=== PATIENT | male | born 1950 | race Two or more races ===

== ENCOUNTER 2018-03-23 11:30 | Outpatient (AMBR) | payer MEDICARE, MEDICAID, SELFPAY ==
--- NOTE | 2018-02-25 15:13 | PTNOTE_ITS ---
PT OP Initial Eval Patient Information Visit Reasons: stroke Medical Diagnosis: Stroke Treatment Dx #1: Right Side Weakness Treatment Dx #2: Gait Difficulty Start of Care: 02/25/18 Date of Onset: 01/27/18 Initial Assessment Subjective Pt is a 67 y/o male recently had a stroke affecting his R side leading to decline difficulty with walking, chores, self care, feeding, and performing normal ADLs. Pt is now currently walking ~ 300 ft with FWW at home and started to self feed. Objective Right Shoulder AROM Flexion: 90 deg Abduction: 90 deg ER: 70 deg IR: 50 deg Right Shoulder MMTs: grossly 3-/5 Right PROM: all motions are WFL Right LE MMTs: grossly 3-/5; trace with R dorsiflexors Ambulation: increase hip flexion on the right with swing with minimal push off with preswing. No active DF with swing with poor ankle stability LE scale: 95% disabled Assessment Pt demonstrate right side weakness with abnormal gait secondary to L CVA. Pt has difficulty performing his feeding, dress, and functional tasks due to poor mobility and stability within his right UE and LE. Pt will benefit from physical therapy to increase strength, mobility, and work on ambulation Short Term and Skilled Nursing Goals 1) Increase LE scale to 40% and R LE MMTs to 4-/5 in 12 wks to be able to ambulate more than 1000 ft. 2) Increase R UE MMTs to 3+/5 in 12 wks to be able to feed him self 3) Increase indep with transfer and gait in 12 wks using FWW to be able to perform household ADLs 4) Indep with HEP Treatment Plan 1) Manual Therapy 2) Therapeutic Activities 3) Therapeutic Exercises 4) Gait Training Frequency and Duration 2 x wk for 12 wks Certification Dates: 02/25/18 to 05/28/18 Office Procedures PT Outpatient G-Codes Date of Service PT Date of Service: 02/25/18 G-Codes Walking & Moving Around Mobility Current Status G-Code: G8978: CM 80-100% Mobility Status G-Code: G8979: CJ 20-40% PT Procedures PT Date of Service: 02/25/18 OP PT Eval Mod Complex 30 minutes: Yes
--- NOTE | 2018-03-03 13:00 | ST.OIERPT ---
Office Procedures PT Outpatient G-Codes Date of Service PT Date of Service: 02/25/18 G-Codes Walking & Moving Around Mobility Current Status G-Code: G8978: CM 80-100% Mobility Status G-Code: G8979: CJ 20-40% PT Procedures PT Date of Service: 02/25/18 OP PT Eval Mod Complex 30 minutes: Yes PT Procedures PT Date of Service: 03/03/18 Gait Training 15 minutes: Yes Therapeutic Activity 15 minutes: Yes Therapeutic Exercise 15 minutes: Yes ST Evals/Treatments Date of Service ST Date of Service: 03/03/[address] Initial Swallow/Oral Function: Yes ST Speech Eval of Prod w/Language Eval: Yes ST Outpatient G-Codes Date of Service ST Date of Service: 03/03/18 Motor Speech G-Code/Modifiers Motor Speech Current Status G8999: CL 60-79% Impaired Motor Speech Projected Status G9186: CJ 20-39% Impaired ST OP Initial Eval Patient Information Visit Reasons: stroke, Apraxia and Dysphagia Medical Diagnosis: 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 arrived with DTR/ CG Objective: Speech, Language and Swallow Assessment Assessment: Mr. Davis is a primary serbian speaker who had a Stroke one month ago and treated at local hospital. He is at home with DTR now. He has been disabled for several years due to diabetes complications, vision is impaired moderately. 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 At this time Pt. has c/o of not being able to think of words and saying them intelligibly. He also has difficulty with eating solids foods. Dtr reports pt. is frustrated and often refuses meals. An oral peripheral examination was completed. He has very poor dentition. Many caries/ broken and missing bottom teeth and only one tooth on the top. Facial droop is observed. Lingual excursion is reduced as well as strength. Labial excursion is slow . Jaw grading is adequate. Pt. demonstrates difficulty producing 2+ syllabic words even with modeling. His communication in conversation lacks content words due to word recall deficits as well. Pt. has good auditory comprehension skills in primary language. He is able to recall 2+ step instructions. 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 Pt. was given trials of puree and regular textured snack 1/4 in piece. Pt. tolerates purees without difficulty. Pt. had scattered residue of cracker given and needed water to wash the residue and swallow. Pt. trials of thin liquids with cup and straw are WFL. Pt. is dependent for feeding most of the time. Short Term and Penitentiary Goals Penitentiary Goals: Pt. will improve communication exchanges with 90% acc for his safety and needs Short Term Goals: Pt. will improve oral motor skills to 90% acc Pt will improve sound production of varied multi syllabic words 90% acc Pt. will improve word recall of items from home and for ADL's 80% acc Pt. will improve tolerance for mechanical soft textures 95% acc Plan Treatment Plan: Speech, language and Dysphagia treatment for communication and swallowing deficits. Home ex. program for carry over of skills learned. Frequency and Duration: 2xwk X 8wk Certification Dates: March 03- 2017
--- NOTE | 2018-03-03 13:33 | PT.ODAYNRPT ---
PT Outpatient Daily Note Date of Service: March 03, 2018 OP Daily Note Visit Reasons: stroke Outpatient Physical Therapy Treatment Date: 03/03/18 Subjective: Pt has been practicing at home with walking. Objective: Please see flow chart for list of ther ex performed Assessment: cues to correct R LE with swing phase of gait. Pt's gait improved after step to (on foam) exercise with better push off. Plan: Continue with PT Length of Time (minutes) of Treatment: 45 Minutes Office Procedures PT Outpatient G-Codes Date of Service PT Date of Service: 02/25/18 G-Codes Walking & Moving Around Mobility Current Status G-Code: G8978: CM 80-100% Mobility Status G-Code: G8979: CJ 20-40% PT Procedures PT Date of Service: 02/25/18 OP PT Eval Mod Complex 30 minutes: Yes PT Procedures PT Date of Service: 03/03/18 Gait Training 15 minutes: Yes Therapeutic Activity 15 minutes: Yes Therapeutic Exercise 15 minutes: Yes
--- NOTE | 2018-03-09 14:44 | ST.ODAYNRPT ---
Office Procedures PT Outpatient G-Codes Date of Service PT Date of Service: 02/25/18 G-Codes Walking & Moving Around Mobility Current Status G-Code: G8978: CM 80-100% Mobility Status G-Code: G8979: CJ 20-40% PT Procedures PT Date of Service: 02/25/18 OP PT Eval Mod Complex 30 minutes: Yes PT Procedures PT Date of Service: 03/03/18 Gait Training 15 minutes: Yes Therapeutic Activity 15 minutes: Yes Therapeutic Exercise 15 minutes: Yes ST Evals/Treatments Date of Service ST Date of Service: 03/03/[address] Initial Swallow/Oral Function: Yes ST Speech Eval of Prod w/Language Eval: Yes ST Evals/Treatments Date of Service ST Date of Service: 03/08/[address] Speech Therapy Individual: Yes ST Outpatient G-Codes Date of Service ST Date of Service: 03/03/18 Motor Speech G-Code/Modifiers Motor Speech Current Status G8999: CL 60-79% Impaired Motor Speech Projected Status G9186: CJ 20-39% Impaired ST Outpatient Daily Note OP Daily Note Visit Reasons: stroke Outpatient Speech Therapy Treatment Date: 03/08/18 Subjective: Pt. arrived with dtr. in Objective: Pt. will demonstrate labial, lingual and jaw oral motor ex. for ROM and strength 90% acc ST Start of Care Date: 03/03/18 Short term goals/Tx given Pt. will improve oral motor skills to 90% acc Pt will improve sound production of varied multi syllabic words 90% acc Pt. will improve word recall of items from home and for ADL's 80% acc Pt. will improve tolerance for mechanical soft textures 95% acc Treatment of Swallowing Function Treatment of Speech/Language Pt. was instructed on placement of the articulator with tactile and visual cues. Pt. demonstrated over groping. Pt. was able to imitate from the model with 50% acc for jaw and lip and 25 % for lingual protrusion and elevation. DTR instructed on how to carry over and practice at home HEP sheet for oral motor ex targeted issued in primary language. Cont ST POC. Treatment Time Treatment Time (minutes): 45 minutes
--- NOTE | 2018-03-18 13:53 | ST.ODAYNRPT ---
Office Procedures PT Outpatient G-Codes Date of Service PT Date of Service: 02/25/18 G-Codes Walking & Moving Around Mobility Current Status G-Code: G8978: CM 80-100% Mobility Status G-Code: G8979: CJ 20-40% PT Procedures PT Date of Service: 02/25/18 OP PT Eval Mod Complex 30 minutes: Yes PT Procedures PT Date of Service: 03/03/18 Gait Training 15 minutes: Yes Therapeutic Activity 15 minutes: Yes Therapeutic Exercise 15 minutes: Yes ST Evals/Treatments Date of Service ST Date of Service: 03/03/[address] Initial Swallow/Oral Function: Yes ST Speech Eval of Prod w/Language Eval: Yes ST Evals/Treatments Date of Service ST Date of Service: 03/08/[address] Speech Therapy Individual: Yes ST Evals/Treatments Date of Service ST Date of Service: 03/18/[address] Speech Therapy Individual: Yes ST Outpatient G-Codes Date of Service ST Date of Service: 03/03/18 Motor Speech G-Code/Modifiers Motor Speech Current Status G8999: CL 60-79% Impaired Motor Speech Projected Status G9186: CJ 20-39% Impaired ST Outpatient Daily Note OP Daily Note Visit Reasons: stroke Outpatient Speech Therapy Treatment Date: 03/18/18 Subjective: Pt. arrived with dtr and HWK. Objective: Pt. will imitate oral motor ex for lips, jaw and tongue 50% acc Mod A 25 % acc for lips, and jaw, O% for tongue Pt. will express automatic names : numbers, BD, city/state, name of street address, childrens names and months of the year mod A 100% acc Max A 50% acc ST Start of Care Date: 03/03/18 Short term goals/Tx given Pt. will improve oral motor skills to 90% acc Pt will improve sound production of varied multi syllabic words 90% acc Pt. will improve word recall of items from home and for ADL's 80% acc Pt. will improve tolerance for mechanical soft textures 95% acc Treatment of Speech/Language Pt. was able to return demonstration given on target objectives and completed all tasks with good effort. cont ST POC for improving communication skills for expressing his wants and needs to the average listener. Other Recommend to DTr a hearing evaluation and vision test to aid the Rehab of communication Treatment Time Treatment Time (minutes): 30 minutes
--- NOTE | 2018-03-18 15:14 | PT.ODAYNRPT ---
PT Outpatient Daily Note Date of Service: March 18, 2018 OP Daily Note Visit Reasons: stroke Outpatient Physical Therapy Treatment Date: 03/18/18 Subjective: pt had no complaints upon visit. Objective: see flow sheet. Assessment: daughter came in with pt in . stand pivot transfer WC<>sci-fit. gait inside the PB using gait belt for safety followed by WC per daughter. during side steps pt has difficulty lifting and stepping with the RLE so he tends to drag it. when pt steps sideways starting off with the RLE 1st then he can lift his leg and step. daughter is very helpful and demonstrates the correct exercise. pt will ask daughter to lift his leg for the exercises but I told him he needs to try on his own. pt tends to fatigue towards the end of the reps with exercises. Plan: continue POC per PT. Length of Time (minutes) of Treatment: 30 Minutes Office Procedures PT Outpatient G-Codes Date of Service PT Date of Service: 02/25/18 G-Codes Walking & Moving Around Mobility Current Status G-Code: G8978: CM 80-100% Mobility Status G-Code: G8979: CJ 20-40% PT Procedures PT Date of Service: 02/25/18 OP PT Eval Mod Complex 30 minutes: Yes PT Procedures PT Date of Service: 03/03/18 Gait Training 15 minutes: Yes Therapeutic Activity 15 minutes: Yes Therapeutic Exercise 15 minutes: Yes PT Procedures PT Date of Service: 03/18/18 Gait Training 15 minutes: Yes Therapeutic Exercise 15 minutes: Yes ST Evals/Treatments Date of Service ST Date of Service: 03/03/[address] Initial Swallow/Oral Function: Yes ST Speech Eval of Prod w/Language Eval: Yes ST Evals/Treatments Date of Service ST Date of Service: 03/08/[address] Speech Therapy Individual: Yes ST Evals/Treatments Date of Service ST Date of Service: 03/18/[address] Speech Therapy Individual: Yes ST Outpatient G-Codes Date of Service ST Date of Service: 03/03/18 Motor Speech G-Code/Modifiers Motor Speech Current Status G8999: CL 60-79% Impaired Motor Speech Projected Status G9186: CJ 20-39% Impaired
--- NOTE | 2018-03-22 12:06 | PT.ODAYNRPT ---
PT Outpatient Daily Note Date of Service: March 22, 2018 OP Daily Note Visit Reasons: stroke Outpatient Physical Therapy Treatment Date: 03/22/18 Subjective: Pt's daugther mention that he continues to move slowly around the house with his FWW. Pt still has difficulty with transitioning from sitting to standing when he is in the w/c Objective: Please see flow chart for list of ther ex performed Assessment: gait training today with quad cane; Pt physically need help with correct cane placement. At first Pt's dynamic stability is poor but as we practice using the cane he was less fear of falling allowing his dynamic balance to improve while ambulating. Pt require cues to reach for right arm rest while sitting down. With practice improve and Pt started looking for the arm rest on the right side. Plan: Continue with PT Length of Time (minutes) of Treatment: 45 Minutes Office Procedures PT Outpatient G-Codes Date of Service PT Date of Service: 02/25/18 G-Codes Walking & Moving Around Mobility Current Status G-Code: G8978: CM 80-100% Mobility Status G-Code: G8979: CJ 20-40% PT Procedures PT Date of Service: 02/25/18 OP PT Eval Mod Complex 30 minutes: Yes PT Procedures PT Date of Service: 03/03/18 Gait Training 15 minutes: Yes Therapeutic Activity 15 minutes: Yes Therapeutic Exercise 15 minutes: Yes PT Procedures PT Date of Service: 03/18/18 Gait Training 15 minutes: Yes Therapeutic Exercise 15 minutes: Yes PT Procedures PT Date of Service: 03/22/18 Gait Training 30 minutes: Yes Therapeutic Activity 15 minutes: Yes ST Evals/Treatments Date of Service ST Date of Service: 03/03/[address] Initial Swallow/Oral Function: Yes ST Speech Eval of Prod w/Language Eval: Yes ST Evals/Treatments Date of Service ST Date of Service: 03/08/[address] Speech Therapy Individual: Yes ST Evals/Treatments Date of Service ST Date of Service: 03/18/[address] Speech Therapy Individual: Yes ST Outpatient G-Codes Date of Service ST Date of Service: 03/03/18 Motor Speech G-Code/Modifiers Motor Speech Current Status G8999: CL 60-79% Impaired Motor Speech Projected Status G9186: CJ 20-39% Impaired
--- NOTE | 2018-03-23 12:19 | ST.ODAYNRPT ---
Office Procedures PT Outpatient G-Codes Date of Service PT Date of Service: 02/25/18 G-Codes Walking & Moving Around Mobility Current Status G-Code: G8978: CM 80-100% Mobility Status G-Code: G8979: CJ 20-40% PT Procedures PT Date of Service: 02/25/18 OP PT Eval Mod Complex 30 minutes: Yes PT Procedures PT Date of Service: 03/03/18 Gait Training 15 minutes: Yes Therapeutic Activity 15 minutes: Yes Therapeutic Exercise 15 minutes: Yes PT Procedures PT Date of Service: 03/18/18 Gait Training 15 minutes: Yes Therapeutic Exercise 15 minutes: Yes PT Procedures PT Date of Service: 03/22/18 Gait Training 30 minutes: Yes Therapeutic Activity 15 minutes: Yes ST Evals/Treatments Date of Service ST Date of Service: 03/03/[address] Initial Swallow/Oral Function: Yes ST Speech Eval of Prod w/Language Eval: Yes ST Evals/Treatments Date of Service ST Date of Service: 03/23/[address] Speech Therapy Individual: Yes ST Evals/Treatments Date of Service ST Date of Service: 03/08/[address] Speech Therapy Individual: Yes ST Evals/Treatments Date of Service ST Date of Service: 03/18/[address] Speech Therapy Individual: Yes ST Outpatient G-Codes Date of Service ST Date of Service: 03/03/18 Motor Speech G-Code/Modifiers Motor Speech Current Status G8999: CL 60-79% Impaired Motor Speech Projected Status G9186: CJ 20-39% Impaired ST Outpatient Daily Note OP Daily Note Visit Reasons: stroke Outpatient Speech Therapy Treatment Date: 03/22/18 Subjective: Pt. arrived with his CG dtr. Objective: Pt. will imitate oral motor ex for lips, jaw and tongue 50% acc Mod A 50 % acc for lips, and jaw, 25% for tongue Pt. will express automatic names : numbers, BD, city/state, name of street address, childrens names and months of the year mod A 100% acc Mod A 50% acc Assessment: ST Start of Care Date: 03/03/18 Short term goals/Tx given Pt. will improve oral motor skills to 90% acc Pt will improve sound production of varied multi syllabic words 90% acc Pt. will improve word recall of items from home and for ADL's 80% acc Pt. will improve tolerance for mechanical soft textures 95% acc Treatment of Speech/Language Pt. is demonstrating improved oral motor control of lips, and tongue for ROM. Pt. still requires visual and tactile cues. Pt. is improving for automatic responses of target words relating to personal id info. Cont ST POC for improving communication exchanges with the average listener. Other Recommend to DTR a hearing evaluation and vision test to aid the Rehab of communication Treatment Time Treatment Time (minutes): 30 minutes
--- NOTE | 2018-05-06 11:03 | ST.DCSUMMARY ---
Speech Therapy DC Summary MD:: Robert Kim Diagnosis:: CVA with speech and language deficits SOC: 03/03/18 Discharge Date:: 05/06/18 Problems:: Oral Phase Dysphagia, Decreased Intelligibility and Decreased Expressive Language Interventions:: S.T. Evaluation, Oral-Motor Exercises and Other (speech and language retrng.) D/C Status: Other Comments: Pt. did not show for 1 planned and scheduled visits in March and cancelled another. No response to phone messages left by front office for appt. Three treatment visits only completed in February. POC not achieved Assessment: Patient is:: Requires encouragement Patient's progress toward establishing goals:: Fair (pt. did not complete POC.) Reason for Discharge:: Noncompliant/No progress Office Procedures PT Outpatient G-Codes Date of Service PT Date of Service: 02/25/18 G-Codes Walking & Moving Around Mobility Current Status G-Code: G8978: CM 80-100% Mobility Status G-Code: G8979: CJ 20-40% PT Procedures PT Date of Service: 02/25/18 OP PT Eval Mod Complex 30 minutes: Yes PT Procedures PT Date of Service: 03/03/18 Gait Training 15 minutes: Yes Therapeutic Activity 15 minutes: Yes Therapeutic Exercise 15 minutes: Yes PT Procedures PT Date of Service: 03/18/18 Gait Training 15 minutes: Yes Therapeutic Exercise 15 minutes: Yes PT Procedures PT Date of Service: 03/22/18 Gait Training 30 minutes: Yes Therapeutic Activity 15 minutes: Yes ST Evals/Treatments Date of Service ST Date of Service: 03/03/[address] Initial Swallow/Oral Function: Yes ST Speech Eval of Prod w/Language Eval: Yes ST Evals/Treatments Date of Service ST Date of Service: 03/23/[address] Speech Therapy Individual: Yes ST Evals/Treatments Date of Service ST Date of Service: 03/08/[address] Speech Therapy Individual: Yes ST Evals/Treatments Date of Service ST Date of Service: 03/18/[address] Speech Therapy Individual: Yes ST Outpatient G-Codes Date of Service ST Date of Service: 03/03/18 Motor Speech G-Code/Modifiers Motor Speech Current Status G8999: CL 60-79% Impaired Motor Speech Projected Status G9186: CJ 20-39% Impaired
== END 2018-03-26 23:59 ==
PROVIDERS: Visit Provider Speech-Language Pathologist
DX: I10 Essential (primary) hypertension (principal)
CPT/HCPCS: 92507; 92523; 92610; 97110; 97116; 97162; 97530; G8978; G8979; G8999; G9186

== ENCOUNTER 2018-04-11 13:30 | Outpatient (AMBR) | payer MEDICARE, MEDICAID, SELFPAY ==
--- NOTE | 2018-04-11 16:41 | PT.ODAYNRPT ---
PT Outpatient Daily Note Date of Service: April 11, 2018 OP Daily Note Visit Reasons: stroke Outpatient Physical Therapy Treatment Date: 04/11/18 Subjective: pt doing well as he arrived with daughter. Objective: see flow sheet. Assessment: during sit<>Stands pt tends to rely on UE strength to pull up but cued pt to use and push off with his legs in order to increase strength. pt understood but he is use to using more UE. daughter followed us with for safety during gait training. pt using quad cane and need max cuing for correct placement of the cane. while I'm holding pt on the R side using the gait belt he tends to push against me to help him bring his R foot forward. If i step away but still holding onto the gait belt pt gets anxious and can't bring his foot forward. encouraged pt to try and it took him a while but he did it. pt relies on me or someone being next to him for his RLE. needs more practice without someone being too close to him so he can get the courage of doing the steps on his own. Plan: continue POC per PT. Length of Time (minutes) of Treatment: 30 Minutes Office Procedures PT Procedures PT Date of Service: 04/11/18 Therapeutic Activity 30 minutes: Yes
== END 2018-04-26 23:59 | disposition home or self-care (01) ==
PROVIDERS: Visit Provider Internal Medicine
DX: I10 Essential (primary) hypertension (principal)
CPT/HCPCS: 97530

== ENCOUNTER 2025-05-16 04:24 | Inpatient (IN) | payer MEDICARE, MEDICAID, SELFPAY ==
[2025-05-16] VITALS (24 sets, daily range): BP systolic 67–128; BP diastolic 34–70; PULSE 72–146; RESP 11–92; TEMP 35.6–38.6; O2SAT 92–100; BMI 20.3
--- NOTE | 2025-05-16 04:38 | EDNOTE_ITS ---
Altered Mental Status RME/HPI General Chief Complaint: Altered Mental Status Stated Complaint: NOT ACTING HIMSELF; SHAKING Time Seen by Provider: 05/16/25 04:43 Arrival date/time: 05/16/25 04:24 RME / HPI RME / HPI narrative: See MDM for HPI documentation. Related Data Home Medications ?Medication ?Instructions ?Recorded ?Confirmed doxazosin 4 mg tablet 4 mg PO QDAY 01/27/18 losartan 50 mg tablet 50 mg PO QDAY 01/27/1805/16 metformin 1,000 mg tablet 500 mg PO QDAY 01/27/18 0706/20 levothyroxine 88 mcg tablet 88 mcg PO QDAY 04/04/24 Previous Rx's ?Medication ?Instructions ?Recorded clopidogrel 75 mg tablet (Plavix) 75 mg PO QDAY #0 tab s 01/29/18 simvastatin 20 mg tablet 40 mg (2 x 20 mg) PO HS #0 t abs 01/29/18 amoxicillin 500 mg-potassium 1 tab PO BID #12 tabs 09/19 clavulanate 125 mg tablet (Augmentin) sennosides 8.6 mg tablet (senna) 8.6 mg PO QDAY PRN co nstipation 04/07/24 #15 tabs Allergies Allergy/AdvReac Type Severity Reaction Status Date / Time No Known Allergies Allergy Verified 01/27/18 12:04 Review of Systems Review of Systems ROS Unobtainable: unobtainable due to mental status Past Medical History Past Medical History NEUROLOGIC: Negative Neurological Disorders CARDIAC: Positive Hypertension; Negative Cardiac Disorders or Congestive Heart Failure RESPIRATORY: Negative Chronic Obstructive Pulmonary Disease (COPD) or Asthma GENITOURINARY: Negative Renal Disease REPRODUCTIVE: Negative Testicular Cancer MUSCULOSKELETAL: Negative Musculoskeletal Disorders ENDOCRINE: Positive Diabetes Mellitus Type 2; Negative Diabetes Mellitus Type 1 HEMATOLOGIC: Negative Blood Disorders or Sickle Cell Disease OTHER HISTORY: Negative Autoimmune Disease or Testicular Cancer Family History FAMILY HISTORY: Negative Family Psychiatric Problems, Family Cancer, Family Surgery or Family Anesthesia Reaction Surgical History SURGICAL: Negative Vasectomy Social History SMOKING STATUS: Never smoker ED Exam Narrative Physical exam: See [facility] for physical exam documentation. Course Course Course Narrative: 0440: Stroke alert initiated. 0508: Sepsis alert initiated. Orders made at this time are congruent with ED Adult Sepsis Order List. Re-evaluation is to be completed. NS IVF was already started. Quality Measures none Orders Category Date Time Status Bedside Blood Glucose NOW Care 05/16/25 04:39 Completed Bedside COVID-19 Antigen Test NOW Care 05/16/25 04:40 Active Bedside Influenza A&B Antigen Test NOW Care 05/16/25 04:40 Completed Blood glucose [Bedside Blood Glucose] NOW Care 05/16/25 04:31 Active COVID-19 Screening Questionnaire NOW Care 05/16/25 05:49 Active Topper Packer NOW Care 05/16/25 04:39 Active Continuous Pulse Oximetry NOW Care 05/16/25 04:39 Completed Decision to Admit X1 Care 05/16/25 05:49 Completed EKG (ED ONLY) *Do not use* NOW Care 05/16/25 04:31 Completed EKG (ED ONLY) *Do not use* NOW Care 05/16/25 04:39 Completed EKG (ED ONLY) *Do not use* NOW Care 05/16/25 06:01 Completed Insert IV NOW Care 05/16/25 04:39 Active NPO NOW Care 05/16/25 04:39 Active Nurse Swallow Screen x1 Care 05/16/25 04:39 Active Straight [In and Out Catheter] X1 Care 05/16/25 04:40 Completed Consult to Neurology / Tele-Neurology Routine Cons 05/16/25 04:[address] stroke protocol Stat Exams 05/16/25 04:39 Completed EKG (ED Only) Stat Exams 05/16/25 04:31 Ordered EKG (ED Only) Stat Exams 05/16/25 04:39 Ordered EKG (ED Only) Stat Exams 05/16/25 06:01 Ordered XR chest 1V portable Stat Exams 05/16/25 04:39 Completed Arterial Blood Gas Stat Lab 05/16/25 05:58 Completed B-Type Natriuretic Peptide Stat Lab 05/16/25 04:40 Completed Bilirubin,Direct Stat Lab 05/16/25 04:40 Completed Blood Culture (Lab) Stat Lab 05/16/25 04:40 Results CBC Stat Lab 05/16/25 04:40 Completed CRP [C-Reactive Protein] Stat Lab 05/16/25 04:40 Completed Comprehensive Metabolic Panel Stat Lab 05/16/25 04:40 Completed ESR [Sed Rate (ESR)] Stat Lab 05/16/25 04:40 Completed Lactate (Lactic Acid) Stat Lab 05/16/25 04:40 Completed Magnesium Stat Lab 05/16/25 04:40 Completed Partial Thromboplastin Time Stat Lab 05/16/25 04:40 Completed Prothrombin Time with INR Stat Lab 05/16/25 04:40 Completed TSH [Thyroid Stimulating Hormone] Stat Lab 05/16/25 04:40 Completed Troponin I Stat Lab 05/16/25 04:40 Completed UA, C/S IF [Urinalysis, C/S if Indicated] Stat Lab 05/16/25 05:45 Completed Urine Culture Stat Lab 05/16/25 05:45 Received Acetaminophen Ivpb [Ofirmev Inj] Med 05/16/25 05:07 Discontinued 1,000 mg in 100 ml IV X1 Albuterol/Ipratr Rt Felisha [Duoneb Rt Eflisha] Med 05/16/25 05:48 Discontinued 3 ml INH X1 ONE Ketorolac Inj [Toradol Inj] Med 05/16/25 05:07 Discontinued 15 mg IVP X1 ONE MethylPREDNISolone.* [SoluMEDROL Inj] Med 05/16/25 05:48 Discontinued 125 mg IVP X1 ONE Ondansetron Inj [Zofran Inj] Med 05/16/25 04:41 Discontinued 4 mg IVP X1 ONE Sodium Chloride 0.9% 1000 ml [Ns] 1,000 ml Med 05/16/25 04:41 Discontinued IV 999 mls/hr Sodium Chloride 0.9% 1000 ml [Ns] 1,000 ml Med 05/16/25 05:07 Discontinued IV 999 mls/hr cefTRIAXone/D5w 1gm IV premix [Rocephin/D5w 1gm IV Med 05/16/25 05:22 Discontinued premix] 1 gm in 50 ml IV X1 Oxygen Delivery NOW RT 05/16/25 04:39 Completed Vital Signs Vital signs: Vital Signs Temperature 98.6 F 05/16/25 04:45 Pulse Rate 103 H 05/16/25 04:45 Respiratory Rate 17 05/16/25 04:45 Blood Pressure 67/47 L 05/16/25 04:45 Pulse Oximetry (%) 98 05/16/25 04:45 Oxygen Delivery Method Room Air 05/16/25 04:45 Altered Mental Status MDM Narrative MDM Narrative:: This section includes all my notes and documentations, including HPI, PE, and ED course. Best Nunez MD HPI: 74yo male with a history of CVA with residual right-sided hemiparesis here for confusion and slurred speech since 10pm, about 12 hours ago. Daughter also noted inability to swallow water (drooled out of the right side of his mouth). With vomiting. No obvious fever. Patient is on Plavix. No other complaints reported. ROS: Unobtainable from the patient due to current clinical condition. Physical Exam: General: Alert and oriented X 1. Appearance of malaise noted. Eyes: Conjunctivae and lids clear. PERRL. EOMI. ENT: No nasal congestion. Neck: Supple. No carotid bruit. No JVD. Heart: RRR. Lungs: No respiratory distress. Good air movement. No rhonchi, wheezing, rales. Abdomen: Soft and nontender. Normal bowel sounds. No distension. No rebound or guarding. Back: No CVA tenderness. Skin: Warm and dry. Neuro: Alert. I reviewed all diagnostic test results. My interpretation of the chest x-ray is infiltrates. My review of the CT head report is NAD. Blood tests remarkable for Lactic Acid 7.1, Creatinine 1.4, Glucose 329, Troponin 0.067, CRP 6.4, ESR 23. UA showed leukocyte esterase, 195 RBC, 5141 WBC, and 3+ bacteria. At this point, diagnoses include: Sepsis, AMS (altered mental status), Acute respiratory failure with hypoxia, Pneumonia, SWEETIE (acute kidney injury), UTI (urinary tract infection) Treatment here included IV fluid, Zofran, Toradol, Rocephin, Tylenol. I discussed the case with our teleneurologist. About the presentation and exam and diagnostics and treatments here. Probably no BREAKFAST HOST etiology. I discussed the case with our hospitalist. About the presentation and exam and diagnostics and treatments here. And need of further care in the hospital. Will accept the patient. Best Nunez MD Patient data External records reviewed:: [facility] previous records (Per chart review, patient was admitted here on 04/03/24 for dehydration.) Clinical information provided by:: family (daughter and grandson) Social determinants that could affect healthcare access:: none Patient has the following chronic illnesses:: CVA with residual right-sided hemiparesis, DM, HTN How is presenting disease/condition affected by chronic disease/condition?: uneffected by Evaluation data The following diagnostics were reviewed and interpreted by me:: lab results, radiology exam(s) and EKG tracing(s) (My interpretation of the EKG is: Sinus tachycardia (102 bpm) with nonspecific ST-T changes. ) Lab and/or radiology exams considered but not ordered:: none Interpretation Summary: I reviewed all diagnostic test results. My interpretation of the chest x-ray is infiltrates. My review of the CT head report is NAD. Blood tests remarkable for Lactic Acid 7.1, Creatinine 1.4, Glucose 329, Troponin 0.067, CRP 6.4, ESR 23. UA showed leukocyte esterase, 195 RBC, 5141 WBC, and 3+ bacteria. Medications / Prescriptions Medications or Prescriptions considered but not ordered:: none Medication administrations:: Medication Administration History Acetaminophen (Acetaminophen 325 Mg Tablet) 650 mg PO Q6H PRN PRN Reason: Fever >100.4 Stop: 06/15/25 06:07 Acetaminophen (Acetaminophen 325 Mg Tablet) 650 mg PO Q6H PRN PRN Reason: PAIN SCALE 1-3 (mild Stop: 06/15/25 06:07 Atorvastatin Calcium (Atorvastatin Calcium 20 Mg Tablet) 40 mg PO HS ALETA Stop: 06/15/25 20:59 Last Admin: 05/16/25 22:01 Dose: 40 mg Documented By: FRANCIS Clopidogrel Bisulfate (Clopidogrel Bisulfate 75 Mg Tablet) 75 mg PO QDAY [facility] Stop: 06/15/25 08:59 Last Admin: 05/16/25 11:04 Dose: Not Given Documented By: DAA Non-Admin Reason: NPO Dextrose (Dextrose 50%-Water Inj 50 Ml Syringe) 25 ml IV Q15MIN PRN PRN Reason: BG 50-70 responsive npo pt Stop: 06/15/25 06:12 Dextrose (Dextrose 50%-Water Inj 50 Ml Syringe) 50 ml IV Q15MIN PRN PRN Reason: BG <50 OR BG <70 & pt unresponsive Stop: 06/15/25 06:12 Glucagon (Glucagon Inj 1 Mg Vial) 1 mg IM Q15MIN PRN PRN Reason: BG <70, and no IV access Heparin Sodium (Porcine) (Heparin Sod Inj 5000 Unit/Ml Vial) 5,000 unit SC Q12HR ALETA Stop: 05/30/25 08:59 Last Admin: 05/16/25 22:01 Dose: 5,000 unit Documented By: FRANCIS Co-signed By: MECHELLE Admin: 05/16/25 09:46 Dose: 5,000 unit Documented By: JOSE Co-signed By: GIOVANY Sodium Chloride (Ns) 1,000 mls @ 75 mls/hr IV .[id number] ALETA Stop: 05/17/25 06:15 Last Infusion: 05/16/25 07:49 Dose: 0 mls/hr Documented By: Admin: 05/16/25 06:53 Dose: 75 mls/hr Documented By: EZE Ceftriaxone Sodium/Dextrose (Rocephin/D5w 1gm Iv Premix) 1 gm in 50 mls @ 100 mls/hr IV QDAY [facility] Stop: 05/24/25 08:59 Insulin Human Lispro (Insulin Lispro (Admelog) 1 Unit/0.01 Ml Unit) 0 unit SC AC [facility]; Protocol Stop: 06/15/25 07:29 Last Admin: 05/16/25 18:13 Dose: 2 unit Documented By: MORENITA Co-signed By: GIOVANY(2) Admin: 05/16/25 12:30 Dose: Not Given Documented By: GIOVANY Non-Admin Reason: NPO Admin: 05/16/25 07:46 Dose: 4 unit Documented By: GIOVANY Co-signed By: KINGS Morphine Sulfate (Morphine Sulf Inj 10 Mg/Ml Vial) 1 mg IVP Q4HR PRN PRN Reason: PAIN SCALE 7-10 (Severe Stop: 05/21/25 06:07 Ondansetron HCl (Ondansetron Inj 2 Mg/Ml Inj 2 Ml) 4 mg IVP Q6H PRN; Protocol PRN Reason: NAUSEA OR VOMITING Stop: 06/15/25 06:07 Oxycodone/Acetaminophen (Oxycodone/Apap 5/325 Tablet) 1 tab PO Q6H PRN PRN Reason: PAIN SCALE 4-6 (Moderate Stop: 05/21/25 06:07 Pantoprazole Sodium (Pantoprazole Inj 40 Mg Vial) 40 mg IVP QDAY [facility] Stop: 06/15/25 08:59 Last Admin: 05/16/25 09:47 Dose: 40 mg Documented By: JOSE Sennosides (Senna Tablet) 1 tab PO QDAY PRN; Protocol PRN Reason: constipation Stop: 06/15/25 06:07 Discontinued Medications Albuterol/Ipratropium (Albuterol/Ipratropium (Duoneb) Rt Felisha 3 Ml Nebu) 3 ml INH X1 ONE Stop: 05/16/25 05:49 Last Admin: 05/16/25 16:06 Dose: Not Given Documented By: GIOVANY Non-Admin Reason: Per Protocol Enoxaparin Sodium (Enoxaparin Sod Inj 40 Mg/0.4 Ml Syringe) 40 mg SC QDAY [facility] Stop: 05/30/25 08:59 Sodium Chloride (Ns) 1,000 mls @ 999 mls/hr IV .Q1H1M ONE Stop: 05/16/25 05:41 Last Infusion: 05/16/25 06:31 Dose: Infused Documented By: Admin: 05/16/25 05:05 Dose: 999 mls/hr Documented By: EZE Acetaminophen (Ofirmev Inj) 1,000 mg in 100 mls @ 250 mls/hr IV X1 ONE Stop: 05/16/25 05:30 Last Infusion: 05/16/25 05:56 Dose: Infused Documented By: Admin: 05/16/25 05:29 Dose: 250 mls/hr Documented By: EZE Sodium Chloride (Ns) 1,000 mls @ 999 mls/hr IV .Q1H1M ONE Stop: 05/16/25 06:07 Last Infusion: 05/16/25 08:00 Dose: Infused Documented By: Admin: 05/16/25 05:34 Dose: 999 mls/hr Documented By: EZE Ceftriaxone Sodium/Dextrose (Rocephin/D5w 1gm Iv Premix) 1 gm in 50 mls @ 100 mls/hr IV X1 ONE Stop: 05/16/25 05:51 Last Infusion: 05/16/25 06:10 Dose: Infused Documented By: Admin: 05/16/25 05:38 Dose: 100 mls/hr Documented By: EZE Piperacillin Sod/Tazobactam (Sod 4.5 gm/ Sodium Chloride) 100 mls @ 200 mls/hr IV Q8HR [facility] Stop: 05/23/25 13:59 Piperacillin Sod/Tazobactam (Sod 4.5 gm/ Sodium Chloride) 100 mls @ 200 mls/hr IV X1 ONE Stop: 05/16/25 06:59 Last Infusion: 05/16/25 09:07 Dose: Infused Documented By: Admin: 05/16/25 06:47 Dose: 200 mls/hr Documented By: EZE Vancomycin HCl 1,000 mg/ (Sodium Chloride) 250 mls @ 120 mls/hr IV X1 ONE Stop: 05/16/25 08:34 Last Infusion: 05/16/25 11:04 Dose: Infused Documented By: Admin: 05/16/25 07:30 Dose: 120 mls/hr Documented By: GIOVANY Lactated Ringer's (Lactated Ringers) 1,000 mls @ 999 mls/hr IV .Q1H1M ONE Stop: 05/16/25 08:12 Last Infusion: 05/16/25 09:08 Dose: Infused Documented By: Admin: 05/16/25 07:36 Dose: 999 mls/hr Documented By: GIOVANY Ketorolac Tromethamine (Ketorolac Inj 30 Mg/Ml Vial) 15 mg IVP X1 ONE Stop: 05/16/25 05:08 Last Admin: 05/16/25 05:32 Dose: 15 mg Documented By: EZE Methylprednisolone Sodium Succinate (Methylprednisolone Sod Succ 62.5 Mg/Ml 2ml Vial) 125 mg IVP X1 ONE Stop: 05/16/25 05:49 Last Admin: 05/16/25 06:13 Dose: 125 mg Documented By: EZE Ondansetron HCl (Ondansetron Inj 2 Mg/Ml Inj 2 Ml) 4 mg IVP X1 ONE; Protocol Stop: 05/16/25 04:42 Last Admin: 05/16/25 05:33 Dose: 4 mg Documented By: EZE Pharmacy Consult (Vancomycin Pharmacy To Dose 1 Each Each) 1 each IV QDAY PRN PRN Reason: PROTOCOL Stop: 06/15/25 08:59 From md, patient received IV fluid, Zofran, Toradol, Rocephin, Tylenol. Consultations Consultation(s) initiated? (list below): Yes Consultation #1 (Physician, Specialty, Details): I discussed the case with our teleneurologist. About the presentation and exam and diagnostics and treatments here. Recommended admission for sepsis workup and treatment. Consultation #2 (Physician, Specialty, Details): I discussed the case with our hospitalist. About the presentation and exam and diagnostics and treatments here. And need of further care in the hospital. Will accept the patient. Diagnosis Differential diagnosis altered mental status: alcoholic intoxication, altered mental status, delirium, dementia, hypoglycemia, hyponatremia, subarachnoid hemorrhage and sepsis Most likely diagnosis given after review of the tests above:: At this point, diagnoses include: Sepsis, AMS (altered mental status), Acute respiratory failure with hypoxia, Pneumonia, SWEETIE (acute kidney injury), UTI (urinary tract infection) Admission Indicated Admission indicated?: indicated Explain why admission is indicated or not indicated:: Sepsis Admission Request Was there a request for admission?: Yes Admission Attestation Admission request attestation: Discussed case with Hospitalist service regarding admission. Discussed patients ED course, exam findings, labs, and radiology results. The Hospitalist [agrees] to accept the patient for admission. Disposition Plan Disposition Plan: Admit Critical Care Time Critical Care Time Critical Care Time: Yes Total Critical Care Time (min.): 40 Attestation: Due to a high probability of clinically significant, life threatening deterioration, the patient required my highest level of preparedness to intervene emergently and I personally spent this critical care time directly and personally managing the patient. This critical care time included obtaining a history; examining the patient; ordering and review of studies; arranging urgent treatment with development of a management plan; evaluation of patient's response to treatment; frequent reassessment; and discussions with family and other providers. It was exclusive of separately billable procedures and treating other patients and teaching time. Best Nunez MD Discharge Plan Plan Patient Disposition: Admit Acute Care w/in Hospital Problem List Clinical Impression: Sepsis, AMS (altered mental status), Acute respiratory failure with hypoxia, Pneumonia, SWEETIE (acute kidney injury), UTI (urinary tract infection)
--- NOTE | 2025-05-16 04:39 | XR_ITS ---
Examination: CT brain head without contrast. 2-D sagittal coronal reconstructions Date and time of exam:May 16, 2025 0448 hours, comparison April 04, 2024 INDICATIONS: Stroke alert, onset altered mental status today CTDI: vol (mGy):49.3 DLP: (mGycm):816 Technique: Multiple CT axial sections of the brain have been obtained, 5 mm slice thickness. Contrast has not been administered. 2-D sagittal, coronal reconstructions have been obtained Low dose protocols were performed. One or more of the following dose reduction techniques were used; automated exposure control, adjustment of the mA and/or KV according to patient size, use of iterative reconstruction technique. Findings: No significant ventricular enlargement. Intra-axial or extra-axial hemorrhage density is not seen. No mass effect or midline shift Basal cisterns are not remarkable. Fourth ventricle is midline. Cranial vault intact. Encephalomalacia in distribution of the left middle cerebral artery Impression: Negative for acute hemorrhage, mass effect or midline shift
--- NOTE | 2025-05-16 04:39 | XR_ITS ---
Examination: AP chest single view Technique one AP portable semiupright chest single view Date and time: May 16, 2025 0514 hours, comparison April 14, 2024 INDICATIONS: Sepsis alert FINDINGS: Subtle opacity in the left upper lobe Normal heart size Right lung clear Prominent osteopenia IMPRESSION: Recommend AP lordotic chest follow-up to exclude parenchymal disease versus mass at the left apex
--- NOTE | 2025-05-16 04:41 | PC.NURSE ---
Case Consult 05/16/2025 04:41:17 [facility] Case # [id number] has been created.
[2025-05-16 04:54] LABS: Basophils # (Auto) 0.0 Thou/mm3 (0.0-0.2); Basophils % (Auto) 0 % (0-2.5); Eosinophils # (Auto) 0.0 Thou/mm3 (0.0-0.5); Eosinophils % (Auto) 0 % (0-10); Hematocrit 40.3 % (41.0-53.0); Hemoglobin 13.4 g/dL (13.5-16.0); Immature Granulocytes Auto 0.08 Thou/mm3 (0.00-0.00); Lymphocytes # (Auto) 0.3 Thou/mm3 (1.0-4.8); Lymphocytes % (Auto) 3 % (10-50); Mean Corpuscular HGB Conc 33.3 g/dl (31.0-37.0); Mean Corpuscular Hemoglobin 29.5 pg (25.0-35.0); Mean Corpuscular Volume 89 fL (80-100); Monocytes # (Auto) 0.2 Thou/mm3 (0.0-0.8); Monocytes % (Auto) 2 % (0-12); Neutrophils # (Auto) 9.8 Thou/mm3 (1.8-7.7); Neutrophils % (Auto) 94 % (37-80); Nucleated Red Blood Cell # 0.00 Thou/mm3 (0.00-0.00); Nucleated Red Blood Cell % 0 /100 WBC (0); Platelet Count 161 Thou/mm3 (140-440); RDW Standard Deviation 42.1 fL (35.1-43.9); Red Blood Count 4.55 Miln/mm3 (4.50-5.90); White Blood Count 10.5 Thou/mm3 (3.8-10.6)
--- NOTE | 2025-05-16 04:54 | PC.NURSE ---
Doctor from [employer] called for consult.
[2025-05-16 05:02] LABS: Lactate (Lactic Acid) 7.1 mMol/L (0.4-2.0)
[2025-05-16 05:05] LABS: Sed Rate (ESR) 23 mm/hr (0-20)
[2025-05-16] MEDS: SODIUM CHLORIDE 0.9% 1000 ML 1,000 ML 999 ML IV ×2 (05:05→05:34)
--- NOTE | 2025-05-16 05:07 | PRELIM_ITS ---
CT scan of the head without intravenous contrast (axial sections with sagittal and coronal reformats) May 16, 2025 0448 hours Clinical history: Focal neuro deficit, stroke suspected. Comparison: None available at the time of this report. Findings: Chronic encephalomalacia in the left parietal lobe. There is no evidence of intracranial hemorrhage, mass effect or midline shift. There are periventricular white matter hypodensities, compatible with chronic small vessel ischemia. There is severe volume loss. The calvarium is unremarkable. The mastoid air cells and the visualized paranasal sinuses are clear. Impression: Chronic encephalomalacia in the left parietal lobe. This is consistent with chronic infarct in the territory of the left MCA. If acute on chronic infarct is clinically suspected consider correlation with MRI. No evidence of intracranial hemorrhage, mass effect or midline shift. Periventricular chronic small vessel ischemia and volume loss. Aspect score 10. Discussion Details: Results verbally communicated to : Dr. Nunez at 05:05 AM 05/16/2025 Report Electronically Signed By: Archie Jaramillo 05/16/2025 5:06:50 AM [EST]
[2025-05-16 05:17] LABS: INR 1.2 (0.9-1.3); Partial Thromboplastin Time 30.8 Seconds (22.0-36.0); Prothrombin Time 12.9 Seconds (9.0-12.2)
[2025-05-16 05:21] LABS: B-Type Natriuretic Peptide 131 pg/mL (0-100)
[2025-05-16 05:22] LABS: Alanine Aminotransferase 28 U/L (10-49); Albumin, Serum 3.8 gm/dL (3.4-4.8); Albumin/Globulin Ratio 1.3 (1.2-2.2); Alkaline Phosphatase 117 U/L (46-116); Anion Gap 16 (7-16); Aspartate Amino Transferase 27 U/L (0-34); BUN/Creatinine Ratio 13 Ratio (12-20); Bilirubin,Direct 0.7 mg/dL (0.0-0.3); Bilirubin,Total 1.4 mg/dL (0.3-1.2); Blood Urea Nitrogen 18 mg/dL (9-23); C-Reactive Protein 6.4 mg/dL (0.0-0.9); Calcium 9.5 mg/dL (8.3-10.6); Calcium (Corrected) 9.7 mg/dL (8.5-10.1); Carbon Dioxide 24.0 mMol/L (20.0-31.0); Chloride 97 mMol/L (98-107); Creatinine (Component) 1.4 mg/dL (0.6-1.3); Estimated Creatinine Clearance 38.0 mL/min (>60); Globulin 2.9 gm/dL (2.3-3.5); Glucose 329 mg/dL (74-106); Magnesium 1.9 mg/dL (1.6-2.6); Osmolality,Calculated 288 (275-295); Potassium 3.4 mMol/L (3.4-5.1); Sodium 137 mMol/L (136-145); Thyroid Stimulating Hormone 7.90 uIU/mL (0.55-4.78); Total Protein 6.7 gm/dL (5.7-8.2); eGFR 52 See Note
[2025-05-16 05:25] LABS: Troponin I 0.067 ng/mL (0.0-0.045)
[2025-05-16] MEDS: ACETAMINOPHEN IVPB 1,000 MG/100 ML VIAL 250 MG IV (05:29)
--- NOTE | 2025-05-16 05:29 | ESCONSULT_ITS ---
Tele Neuro Consultation Consultation Date 05/16/25 Most Recent Vital Signs Last Vital Signs Temp 101.4 F H 05/16/25 05:03 Pulse 131 H 05/16/25 05:03 Resp 20 05/16/25 05:03 BP 87/51 L 05/16/25 05:03 Pulse Ox 100 05/16/25 05:03 O2 Del Method Room Air 05/16/25 05:03 Laboratory-Coagulation Panel PT 12.9 Seconds (9.0-12.2) H 05/16/25 04:40 INR 1.2 (0.9-1.3) 05/16/25 04:40 APTT 30.8 Seconds (22.0-36.0) 05/16/25 04:40 Consultation Narrative [facility] Tele[facility]urology Consult Services Patient Name: JULIANE HAYWOOD Date of : 1950 Identification Number: Date of Service: 05/16/2025 04:41:17 Diagnosis: ? G93.41 - Encephalopathy Metabolic Impression: ? Toxic metabolic encephalopathy versus stroke recrudescence versus recurrent stroke I am concerned the patient may be septic He is hypotensive tachycardic I would not recommend IV thrombolytic therapy for this patient last known normal was yesterday evening in addition I do not feel that his current presentation is due to an acute ischemic stroke Stroke recrudescence is also within the differential diagnosis Okay to continue Plavix noncontrasted to the head was unremarkable Proceed with a toxic metabolic workup Routine EEG for reported shaking episode MRI of the brain without contrast to rule out recurrent stroke Carotid duplex studies No need for advanced imaging with CTA at this time Our recommendations are outlined below. Recommendations: ? Stroke/Telemetry Floor ? Neuro Checks (Q4) ? Bedside Swallow Eval ? DVT Prophylaxis ? IV Fluids, Normal Saline ? Head of Bed 30 Degrees ? Euglycemia and Avoid Hyperthermia (PRN Acetaminophen) ? Initiate Clopidogrel 75 mg daily ? no need for permissive Sign Out: ? Discussed with Emergency Department Provider Advanced Imaging: Advanced Imaging Deferred because: Stroke not suspected with clinical presentation and exam Metrics: Last Known Well: 05/15/2025 22:00:00 Dispatch Time: 05/16/2025 04:41:17 Arrival Time: 05/16/2025 04:26:00 Initial Response Time: 05/16/2025 04:43:09 Symptoms: Confusion. Initial patient interaction: 05/16/2025 04:50:26 NIHSS Assessment Completed: 05/16/2025 04:52:28 Patient is not a candidate for Thrombolytic. Thrombolytic Medical Decision: 05/16/2025 04:52:30 Patient was not deemed candidate for Thrombolytic because of following reasons: LKW outside 4.[address] Head: I personally reviewed all the CT images that were available to me and it showed: no acute abnormality Primary Provider Notified of Diagnostic Impression and Management Plan on: 05/16/2025 05:28:01 History of Present Illness: Patient is a 74 year old Male. Patient was brought by private transportation with symptoms of Confusion. 74-year-old male with a past medical history significant for prior left hemispheric stroke with residual aphasia, as well as right hemiparesis Per review of the records it appears the patient is on Plavix, patient also has a history of hypertension hyperlipidemia and diabetes recurrent urinary tract infections Was noted by family to be normal yesterday evening at 10:00 but then awoke today and seemed to be confused at times agitated disoriented Speech was more slurred Per family there was also reported shaking He has no history of seizures and on arrival to the emergency department blood pressure was noted to be 70/60 Past Medical History: ? Hypertension ? Diabetes Mellitus ? Hyperlipidemia ? Stroke ? There is no history of Atrial Fibrillation ? There is no history of Coronary Artery Disease ? There is no history of Covid-19 ? There is no history of Seizures ? There is no history of Migraine Headaches ? There is no history of Dementia/MCI unable to obtain due to: Patient Is Confused Medications: No Anticoagulant use Antiplatelet use: Yes Plavix Reviewed EMR for current medications Allergies: Reviewed Allergies Unable To Obtain Due To: Patient Is Confused Social History: Unable To Obtain Due To Patient Status : Patient Is Confused Family History: Family History Cannot Be Obtained Because:Patient Is Confused ROS : ROS Cannot Be Obtained Because: Patient Is Confused Past Surgical History: Past Surgical History Cannot Be Obtained Because: Patient Is Confused There Is No Surgical History Contributory To Today?s Visit Examination: BP(70/60), Pulse(131), Blood Glucose(299) 1A: Level of Consciousness - Alert; keenly responsive + 0 1B: Ask Month and Age - Both Questions Right + 0 1C: Blink Eyes & Squeeze Hands - Performs Both Tasks + 0 2: Test Horizontal Extraocular Movements - Normal + 0 3: Test Visual Quintanilla - No Visual Loss + 0 4: Test Facial Palsy (Use Grimace if Obtunded) - Partial paralysis (lower face) + 2 5A: Test Left Arm Motor Drift - No Drift for 10 Seconds + 0 5B: Test Right Arm Motor Drift - Drift, hits bed + 2 6A: Test Left Leg Motor Drift - No Drift for 5 Seconds + 0 6B: Test Right Leg Motor Drift - Drift, hits bed + 2 7: Test Limb Ataxia (FNF/Heel-Jenkins) - Ataxia in 1 Limb + 1 8: Test Sensation - Normal; No sensory loss + 0 9: Test Language/Aphasia - Mild-Moderate Aphasia: Some Obvious Changes, Without Significant Limitation + 1 10: Test Dysarthria - Mild-Moderate Dysarthria: Slurring but can be understood + 1 11: Test Extinction/Inattention - No abnormality + 0 NIHSS Score: 9 Pre-Morbid Modified Torrance Scale: 3 Points = Moderate disability; requiring some help, but able to walk without assistance Spoke with : Dr. Nunez This consult was conducted in real time using interactive audio and video technology. Patient was informed of the technology being used for this visit and agreed to proceed. Patient located in hospital and provider located at home/office setting. Patient is being evaluated for possible acute neurologic impairment and high probability of imminent or life-threatening deterioration. I spent total of 35 minutes providing care to this patient, including time for face to face visit via telemedicine, review of medical records, imaging studies and discussion of findings with providers, the patient and/or family. Dr Javier Milner [facility] For Inpatient follow-up with [facility] physician please call [facility] at . As we are not an outpatient service for any post hospital discharge needs please contact the hospital for assistance. If you have any questions for the [facility] physicians or need to reconsult for clinical or diagnostic changes please contact us via [facility] at . Signature : Javier Milner
[2025-05-16] MEDS: KETOROLAC INJ 30 MG/ML VIAL 15 MG IVP (05:32)
[2025-05-16] MEDS: ONDANSETRON INJ 2 MG/ML INJ 2 ML 4 MG IVP (05:33)
[2025-05-16] MEDS: cefTRIAXone/D5w 1gm IV premix 1 GM/50 ML BAG IV (05:38)
[2025-05-16 05:51] LABS: Collection Type, Urine Clean Catch; Squamous Epithelial Cell,Urine 0 /hpf (0-5)
[2025-05-16 06:02] LABS: Base Excess -5 (-3-3); HCO3 19 mEq/L (20-26); O2 Saturation 100 % (91-98); PCO2 30 mmHg (32.0-48.0); PO2 146 mmHg (83-108); pH, Arterial 7.40 (7.35-7.45)
[2025-05-16 06:05] LABS: Allen Test Performed/OK; Inspired O2, VO2 Liters 3 L/min; Puncture Site Right Brachial
[2025-05-16 06:06] LABS: Bacteria,Urine 3+; Bilirubin,Urine Negative (Negative); Blood,Urine 3+ (Negative); Glucose, Urine 3+ (Negative); Ketones,Urine Negative (Negative); Leukocyte Esterase,Urine Positive (Negative); Nitrite,Urine Negative (Negative); PH,Urine 6.0 (5.0-7.0); Protein,Urine 3+ (Neg - Trace); RBC,Urine 195 /hpf (0-3); Specific Gravity,Urine 1.017 (1.001-1.035); Urobilinogen,Urine 3.0 mg/dL (0.0-1.0); WBC,Urine 5141 /hpf (0-5)
--- NOTE | 2025-05-16 06:08 | XR_ITS ---
Examinations: MRI Brain without intravenous contrast. MRI brain with intravenous contrast MRA brain with intravenous contrast. MRA brain without intravenous contrast MRA neck with intravenous contrast Date and time of exam: May 16, 2025 1239 hours INDICATIONS: Stroke alert May 16, 2025 0439 hours, onset focal neurologic deficit, altered mental status, confusion, slurred speech Technique: Multiple axial and sagittal images of the brain have been obtained Siemens high-resolution 1.5 Mary short bore scanner is utilized. Sagittal sections, T1-weighted, TR 500, TE 14 Axial sections proton density and T2-weighted, TR 3,000, TE 34, TR 3,000, TE 91 Inversion recovery axial images, TR 9,260, TE 111, TI 2,500 Diffusion weighted images, axial sections, TR 4,800, TE 128, B value 1,000 Axial sections, ADC map, TR 4,800, TE 128. Contrast images have been obtained post intravenous 4 cc Gadolinium. T1-weighted axial and coronal images post contrast have been obtained. Angiographic images of neck and brain are obtained pre and post contrast. 3-D post processing performed, including brain, extracranial neck arterial maximum intensity projections Findings: Sellaturcica is not enlarged. The optic chiasm and infundibular stalk are not remarkable. Prepontine and interpeduncular cisterns are not enlarged. No localized enlargement of the medulla or trina. Fourth ventricle and cerebellar tonsils normal in position. Subacute hemorrhage is not seen. Fourth ventricle is midline. Mass in the cerebellopontine angle region is not evident. 7th and 8th nerve complexes exhibits symmetry. Globes are symmetrical with no retro-orbital mass. Increased white matter signal prominent including old infarct left occipital lobe Diffusion-weighted images demonstrateno focus of restricted diffusion. Mass-effect upon the ventricular system is not identified. Abnormal contrast enhancement is not seen. MRA brain carotid images no significant carotid stenoses No cerebral large vessel arterial occlusions Impression: Negative for acute hemorrhage, mass effect or midline shift No acute infarct Prominent chronic microvascular white matter change
--- NOTE | 2025-05-16 06:08 | XR_ITS ---
Examination: Carotid arterial duplex scan, ultrasound. Date and time of exam: May 16, 2025, 0738 hours INDICATIONS: Stroke alert May 16, 2025 0448 hours, onset focal neurologic deficit Technique: Multiple sonographic images have been obtained of the carotid arteries and vertebral arteries, B-mode/grayscale imaging and Doppler spectral analysis and color flow Peak systolic and diastolic velocities have been recorded. Systolic diastolic ratios have been calculated. Findings: Right peak systolic velocities: Distal internal carotid artery peak systolic velocity is 0.6 M/sec Proximal internal carotid artery peak systolic velocity is 0.8 M/sec Carotid bifurcation peak systolic velocity is 0.9 M/sec External carotid artery peak systolic velocity is 1.1 M/sec Vertebral artery flow is antegrade. Left peak systolic velocities: Distal internal carotid artery peak systolic velocity is 0.5 M/sec Proximal internal carotid artery peak systolic velocity is 0.4 M/sec Carotid bifurcation peak systolic velocity is 0.9 M/sec External carotid artery peak systolic velocity is 0.7 M/sec Vertebral artery flow is antegrade Doppler waveform analysis demonstrates no spectral broadening Impression: Right internal carotid artery demonstrates 0-10% stenosis. Left internal carotid artery demonstrates 0-10% stenosis.
[2025-05-16] MEDS: MethylPREDNISolone SOD SUCC 62.5 MG/ML 2ML VIAL 125 MG IVP (06:13)
[2025-05-16 06:18] LABS: Clarity,Urine Turbid (Clear/Hazy); Color,Urine Amber (Lt Yel-Yel); Culture Indicated,Urine Yes
--- NOTE | 2025-05-16 06:18 | ESHP_ITS ---
Documentation for date of: 05/16/25 [facility] History of Present Illness Chief complaint: Confusion and slurred speech since 10 PM yesterday. History of present illness: 74-year-old male with a history of CVA with residual right-sided hemiparesis, type 2 diabetes, hypertension, and hyperlipidemia who presented to the ED with acute confusion and slurred speech. Per his daughter, he was at baseline around 8?9 PM but later became confused, was unable to swallow water (drooling from right side of mouth), vomited, and did not recognize family members. Family noted shaking, which was clarified as shivering rather than seizure activity. Fever at home measured ~100?F. On arrival to ED, patient was febrile (101.4?F), hypotensive (BP 67/47 --> improved to 87/51 after 500 cc NS), tachycardic (HR 131), and hyperglycemic (glucose 329). Lactic acid elevated at 7.1. Blood pressure remains soft despite IV fluids. Teleneurology consulted: impression was toxic-metabolic encephalopathy vs stroke recrudescence vs recurrent stroke. Not a candidate for tPA due to last known well >4.[address] head showed chronic left parietal infarct without acute hemorrhage. NIHSS = 9. Recommendations included MRI brain, carotid duplex, EEG, continue Plavix, IV fluids, neuro checks q4h, and bedside swallow evaluation. Patient is currently receiving IVF, Rocephin, Tylenol, and Zosyn has been initiated for sepsis coverage. Review of Systems (ROS): Unable to obtain due to altered mental status. Collateral from daughter: * Positive: Confusion, fever, vomiting, shivering. * Negative: Cough, chest pain, shortness of breath, urinary symptoms, diarrhea, constipation, aspiration/choking with blended foods, seizures. Past Medical History: * CVA with residual right hemiparesis * Hypertension * Type 2 Diabetes Mellitus * Hyperlipidemia * Hypothyroidism (per prior discharge summary) * Recurrent UTIs Past Surgical History: None contributory. Medications: * Metformin (recently stopped by family due to low sugars) * Other home meds uncertain ? pending med rec Allergies: NKDA Social History: Lives with daughter and family. Requires assistance for ADLs. On blended diet. No smoking or alcohol use reported. Exam Vital Signs Temp Pulse Resp BP Pulse Ox O2 Del Method 98.1 F 105 H 15 103/51 L 100 Room Air 05/16/25 06:10 05/16/25 06:10 05/16/25 06:10 05/16/25 06:10 05/16/25 06:10 05/16/25 06:10 Narrative Exam General: Ill-appearing elderly male, alert but confused. HEENT: No JVD, no icterus, oropharynx clear. Heart: Tachycardic, regular. No murmurs. Lungs: Clear, no rales/wheezes. No respiratory distress. Abdomen: Soft, NT/ND. Bowel sounds present. Skin: Warm, dry. No rashes. Neuro: Alert but confused. Dysarthria and mild aphasia. Right-sided weakness and facial droop consistent with prior CVA. Moves left side spontaneously. Results: Labs 05/16/25 04:40 05/16/25 04:40 Labs: Short CBC 05/16/25 Range/Units 04:40 WBC 10.5 (3.8-10.6) Thou/mm3 Hgb 13.4 L (13.5-16.0) g/dL Hct 40.3 L (41.0-53.0) % Plt Count 161 (140-440) Thou/mm3 BMP 05/16/25 04:40 Sodium 137 Potassium 3.4 Chloride 97 L Carbon Dioxide 24.0 BUN 18 Creatinine 1.4 H Glucose 329 H Calcium 9.5 Cardiac Enzymes 05/16/25 Range/Units 04:40 Troponin I 0.067 H* (0.0-0.045) ng/mL Liver Function 05/16/25 Range/Units 04:40 Total Bilirubin 1.4 H (0.3-1.2) mg/dL Direct Bilirubin 0.7 H (0.0-0.3) mg/dL AST 27 (0-34) U/L ALT 28 (10-49) U/L Alkaline Phosphatase 117 H (46-116) U/L Albumin 3.8 (3.4-4.8) gm/dL Urine 05/16/25 Range/Units 05:45 Urine Color Keila (Lt Yel-Yel) Urine Clarity Turbid A (Clear/Hazy) Urine pH 6.0 (5.0-7.0) Ur Specific [place] 1.017 (1.001-1.035) Urine Protein 3+ A (Neg - Trace) Urine Glucose (UA) 3+ A (Negative) ABG Interpretation ABG results: 05/16/25 05:58 ABG pH 7.40 ABG pCO2 30 L ABG pO2 146 H ABG HCO3 19 L ABG O2 Saturation 100 H ABG Base Excess -5 L Quality Measures Quality Measures VTE prophylaxis Advance care planning discussed with:: patient Medications Home Medications and Allergies Home Medications ?Medication ?Instructions ?Recorded ?Confirmed ?Type doxazosin 4 mg tablet 4 mg PO QDAY 01/27/18 History losartan 50 mg tablet 50 mg PO QDAY 01/27/1804/04 History metformin 1,000 mg tablet 500 mg PO QDAY 01/27/1806/20 History levothyroxine 88 mcg tablet 88 mcg PO QDAY 04/04/24 History Allergies Allergy/AdvReac Type Severity Reaction Status Date / Time No Known Allergies Allergy Verified 01/27/18 12:04 Visit Medications Acetaminophen (Acetaminophen 325 Mg Tablet) 650 mg PO Q6H PRN PRN Reason: Fever >100.4 Stop: 06/15/25 06:07 Acetaminophen (Acetaminophen 325 Mg Tablet) 650 mg PO Q6H PRN PRN Reason: PAIN SCALE 1-3 (mild Stop: 06/15/25 06:07 Clopidogrel Bisulfate (Clopidogrel Bisulfate 75 Mg Tablet) 75 mg PO QDAY [facility] Stop: 06/15/25 08:59 Dextrose (Dextrose 50%-Water Inj 50 Ml Syringe) 25 ml IV Q15MIN PRN PRN Reason: BG 50-70 responsive npo pt Stop: 06/15/25 06:12 Dextrose (Dextrose 50%-Water Inj 50 Ml Syringe) 50 ml IV Q15MIN PRN PRN Reason: BG <50 OR BG <70 & pt unresponsive Stop: 06/15/25 06:12 Enoxaparin Sodium (Enoxaparin Sod Inj 40 Mg/0.4 Ml Syringe) 40 mg SC QDAY [facility] Stop: 05/30/25 08:59 Glucagon (Glucagon Inj 1 Mg Vial) 1 mg IM Q15MIN PRN PRN Reason: BG <70, and no IV access Heparin Sodium (Porcine) (Heparin Sod Inj 5000 Unit/Ml Vial) 5,000 unit SC Q12HR [facility] Stop: 05/30/25 08:59 Piperacillin Sod/Tazobactam (Sod 4.5 gm/ Sodium Chloride) 100 mls @ 200 mls/hr IV Q6HR [facility] Stop: 05/23/25 06:13 Sodium Chloride (Ns) 1,000 mls @ 75 mls/hr IV .[id number] [facility] Stop: 06/15/25 06:29 Insulin Human Lispro (Insulin Lispro (Admelog) 1 Unit/0.01 Ml Unit) 0 unit SC AC [facility]; Protocol Stop: 06/15/25 07:29 Morphine Sulfate (Morphine Sulf Inj 10 Mg/Ml Vial) 1 mg IVP Q4HR PRN PRN Reason: PAIN SCALE 7-10 (Severe Stop: 05/21/25 06:07 Ondansetron HCl (Ondansetron Inj 2 Mg/Ml Inj 2 Ml) 4 mg IVP Q6H PRN; Protocol PRN Reason: NAUSEA OR VOMITING Stop: 06/15/25 06:07 Oxycodone/Acetaminophen (Oxycodone/Apap 5/325 Tablet) 1 tab PO Q6H PRN PRN Reason: PAIN SCALE 4-6 (Moderate Stop: 05/21/25 06:07 Pantoprazole Sodium (Pantoprazole Inj 40 Mg Vial) 40 mg IVP QDAY [facility] Stop: 06/15/25 08:59 Pharmacy Consult (Vancomycin Pharmacy To Dose 1 Each Each) 1 each IV QDAY [facility] Stop: 06/15/25 08:59 Sennosides (Senna Tablet) 1 tab PO QDAY PRN; Protocol PRN Reason: constipation Stop: 06/15/25 06:07 Discontinued Medications Albuterol/Ipratropium (Albuterol/Ipratropium (Duoneb) Rt Felisha 3 Ml Nebu) 3 ml INH X1 ONE Stop: 05/16/25 05:49 Sodium Chloride (Ns) 1,000 mls @ 999 mls/hr IV .Q1H1M ONE Stop: 05/16/25 05:41 Last Admin: 05/16/25 05:05 Dose: 999 mls/hr Acetaminophen (Ofirmev Inj) 1,000 mg in 100 mls @ 250 mls/hr IV X1 ONE Stop: 05/16/25 05:30 Last Infusion: 05/16/25 05:56 Dose: Infused Sodium Chloride (Ns) 1,000 mls @ 999 mls/hr IV .Q1H1M ONE Stop: 05/16/25 06:07 Last Admin: 05/16/25 05:34 Dose: 999 mls/hr Ceftriaxone Sodium/Dextrose (Rocephin/D5w 1gm Iv Premix) 1 gm in 50 mls @ 100 mls/hr IV X1 ONE Stop: 05/16/25 05:51 Last Admin: 05/16/25 05:38 Dose: 100 mls/hr Ketorolac Tromethamine (Ketorolac Inj 30 Mg/Ml Vial) 15 mg IVP X1 ONE Stop: 05/16/25 05:08 Last Admin: 05/16/25 05:32 Dose: 15 mg Methylprednisolone Sodium Succinate (Methylprednisolone Sod Succ 62.5 Mg/Ml 2ml Vial) 125 mg IVP X1 ONE Stop: 05/16/25 05:49 Last Admin: 05/16/25 06:13 Dose: 125 mg Ondansetron HCl (Ondansetron Inj 2 Mg/Ml Inj 2 Ml) 4 mg IVP X1 ONE; Protocol Stop: 05/16/25 04:42 Last Admin: 05/16/25 05:33 Dose: 4 mg Assessment & Plan Plan 74M with h/o CVA (residual R hemiparesis, aphasia), DM2, HTN, HLD, and recurrent UTIs presenting with acute confusion, slurred speech, fever (101.4?F), vomiting, and shivering; initially in septic shock (MAP 63, lactate 7.1, glucose 329) likely secondary to urinary source; MAP now improving with IV fluids (63 -> 65) after partial resuscitation, on broad-spectrum antibiotics, pending cultures and neuro workup for possible stroke recrudescence. # Sepsis, unspecified organism Initially presented with septic shock (febrile, tachycardic, lactate 7.1, MAP 63 on arrival with hypotension refractory after 500 cc NS). Now with MAP improving after additional IV fluids Last Seen MAP 63, then 65. Suspected source is urinary given history of recurrent UTIs, though aspiration vs other infection also possible. Plan: * Complete 30 mL/kg NS bolus (~1.8 L total for 59 kg). * Maintenance NS 75 mL/hr. * Piperacillin-Tazobactam 4.5 g IV q6h. * Vancomycin * Trend lactate q4?6 hrs until <2. * Blood & urine cultures pending ? follow up results. * Tylenol PRN fever. * Strict I&O. # Metabolic encephalopathy Likely secondary to sepsis and metabolic derangements; differential includes stroke recrudescence vs recurrent stroke. Plan: * Neuro checks q4h. * MRI brain without contrast. * Carotid duplex. * Routine EEG. * Bedside swallow eval; aspiration precautions. * HOB 30?. # Sequelae of cerebral infarction with hemiparesis affecting right dominant side History of left hemispheric stroke with residual aphasia and hemiparesis. Current deficits appear close to baseline but worsened confusion. Plan: * Continue Clopidogrel 75 mg daily. * Follow teleneurology recommendations. # Type 2 diabetes mellitus with hyperglycemia Glucose 329 on admission; home metformin stopped by family due to hypoglycemia concerns. Plan: * SSI protocol with FS q6h. * Hold metformin (renal function and lactic acidosis). * Target BG 140?180. # Hypothyroidism, unspecified TSH 7.9. Unclear home regimen. Plan: * Verify med rec. * Resume levothyroxine if confirmed. # Hypertension Currently hypotensive; holding all antihypertensives. Plan: * Hold home meds. * Resume when hemodynamically stable. # Hyperlipidemia, unspecified Stable. Plan: * Continue statin if confirmed on med rec. Health Maintenance Disposition: Admit to medicine, stroke/telemetry floor. Feeding: NPO until swallow eval. Thromboprophylaxis: Heparin SQ 5,000 units q12h. GI prophylaxis: Pantoprazole 40 mg IV daily. Code Status: Full Code (to be reconfirmed with daughter). ----- Plan discussed with attending physician Dr. Antonina Robles MD PGY-1 Internal Medicine Attending Provider Attestation/Addendum I have examined the patient, reviewed labs and imaging findings, discussed the case with the resident(s), and reviewed entered orders. I agree with the plan of care as outlined in this note, with these additional summaries/recommendations: After examination of the patient and review of the clinical data, I feel that this patient needs admission to the hospital for further treatment and evaluation. Patient is a 74-year-old male with a medical history of primary hypertension, hypothyroidism, nwo-ogrdjij-linztioea diabetes mellitus type 2, and CVA with residual right-sided deficits presents to [facility] on 05/16/25 with chief complaint of altered mental status. Patient and patient's daughter seen at bedside. Patient noted to be encephalopathic although improving per daughter. He is now answering questions. Stroke alert was called on arrival although unlikely. Etiology most likely infectious/metabolic. Teleneurology recommends to continue Plavix, ultrasound carotid arteries, MRI brain. There was also concern for seizure given that patient was shaking although daughter reports patient has had chills and has been shaking and I have a low suspicion for new onset seizures at this time. If returns we will consider EEG. Patient diagnosed with severe sepsis. 30 cc/kg fluid resuscitation ordered and then we will proceed with IVF at 75 cc/h. Evidence of endorgan damage with encephalopathy, SWEETIE, elevated bilirubin and troponin. Most likely source for sepsis is urinary tract infection. Blood and urine cultures ordered, follow-up results when available. Start broad-spectrum IV antibiotics. Patient was found to be hypotensive in the ED with original blood pressure 87/51. Blood pressure improving after starting sepsis fluid resuscitation protocol. While at bedside MAP is noted to be trending between 65 and 66. Per daughter at bedside patient's mentation is improving. We will admit patient to telemetry although if blood pressure worsens low threshold to upgrade to ICU for pressor support. Patient has severe lactic acidosis with lactic acid 7.1 on admission. Most likely secondary to type a from severe sepsis. Continue fluids and follow-up reflex lactic acid and continue to trend until resolution. Acute kidney injury present with creatinine 1.4 and BUN 18. Most likely secondary to prerenal azotemia. Continue IV fluids, avoid nephrotoxic agents, and renally dose medications. Troponinemia present. Troponin elevated to 0.067 on admission. Most likely secondary to demand ischemia in the setting of sepsis. No cardiac complaints at this time and per daughter has not been complaining of any chest pain or shortness of breath. Continue home levothyroxine. Start insulin sliding scale for diabetes mellitus type 2 with Accu-Cheks. Target blood sugar of 140-180 while hospitalized. Hold home antihypertensives. Patient and daughter updated on the plan and in agreement. All questions answered to satisfaction. Please see residents note for additional details and management. Dr. Antonina MD
[2025-05-16] MEDS: PIPER/TAZO INJ 4.5 GM in SODIUM CHLORIDE 0.9% (POP) 100 ML IV (06:47)
[2025-05-16] MEDS: SODIUM CHLORIDE 0.9% 1000 ML 1,000 ML 75 ML IV (06:53)
[2025-05-16] MEDS: Vancomycin Inj 1,000 MG in SODIUM CHLORIDE 0.9% 250 ML 250 ML 120 MG IV (07:30)
--- NOTE | 2025-05-16 07:30 | PC.NURSE ---
PT BROUGHT IN BY FAMILY WHO STATES PT HAS NOT BEEN ACTING HIMSELF SINCE LAST NIGHT AT 2200 BEFORE GOING TO BED. PER FAMILY PT IS USUALLY A/OX3 GCS 15. PT HAS HX OF STROKE WITH RIGHT SIDED DEFICITS. FAMILY STATES PT HAS NOT SLEPT ALL NIGHT AND APPEARS DISORIENTED. PT WAS A STOKE ALERT BUT THEN BECAME SEPSIS ALERT. PT HAS ELEVATED TROPONIN AND LACTIC ACID LABS, PT HAS RECEIVED 1L OF NS AND CURRENTLY INFUSING 1L AT THIS TIME. PT ALSO GETTING IV ABX ZOSYN AT THIS TIME. PT ALSO HAD FEVER AND GIVEN IV TYLENOL. PT HAS 02 2L AT THIS TIME AND BREATHING NON LABORED AND EVEN SATING 100%. FAMILY AT BEDSIDE.
[2025-05-16] MEDS: RINGERS LACTATED 1000 ML 1,000 ML 999 ML IV (07:36)
[2025-05-16] MEDS: INSULIN LISPRO (AdmeLOG) 1 UNIT/0.01 ML UNIT SC ×2 (07:46→18:13)
[2025-05-16 07:49] LABS: Reflex Lactate? Y
[2025-05-16 08:39] LABS: Free T4 (Free Thyroxine) 1.02 ng/dL (0.89-1.76)
--- NOTE | 2025-05-16 08:46 | CHAP ---
Patient was sleeping. Said a quiet prayer by the bed.
[2025-05-16 09:02] LABS: Lactate (Lactic Acid) 4.5 mMol/L (0.4-2.0)
[2025-05-16] MEDS: HEPARIN SOD INJ 5000 UNIT/ML VIAL SC ×2 (09:46→22:01)
--- NOTE | 2025-05-16 10:12 | PD.RESCONSUL ---
HPI Data of Consult Requesting Physician: Jose Sarkar MD Admitting Provider: Jose Sarkar MD Attending Provider: Jose Sarkar MD Primary Care Provider: Ruiz Murphy MD Consult Narrative History of present illness: CC: altered Patient is a 74 year old male with a past medical history of hypertension, hyperlipidemia, history of diabetes mellity type 2 (denied current medication), and previous CVA, multiple nonhemorrhagic infarcts at occipital lobe, left posterior, and left posterior parietal lobe w/ right sided motor deficits. Patient presented to the emergency room with chief complain of altered mental status and difficulty sleeping. Per family at bedside, marynet has had history of worsening memory but worsened over the last couple days. Patient mostly wheel chair bound and per family, decreased mobility. Patient has become increased law and less likely to cooperate and engage in exercise at home. This morning patient expressed frustration that is he always sick and later this evening once again expressed frustration of requiring hospitilization once again. No worsening loss of motor function but that increased stiffness likely from lack of exercise. ER Course: Vitals: 67/47, HR 103, RR 17, T 98.6 F spO2 98% RA WBC 10.5 hgb 13.4 hct 40.3 CMP Na 137, K 3.4, chloride 97, bicarb 24.0 BUN 18, Cr 1.4, GFR 38 Lactic Acid 7.1 repeat 4.5 CRP 6.4 Total Bili 1.4 direct 0.7 AST 27 ALT 28 Troponin 0.067 0.080 TSH 7.90 Free T4 7.90 Tele neuro consulted given concern for stroke, less likely. Conitnue plavix 75 mg (home medication), MRI, Carotid duplex and EEG (less likely given infection and no reported seizure like activity) PMH: same as above PSH: Denied Medication: Plavix 75 mg once daily, doxazosin, levothyroxine, simvastatin Allergies: none Patient admitted for concern for Sepsis, likely secondary to UTI. Neuro following given acute metbolic encephalopathy, concern for new stroke, less likely. Continue home medication of Simvastatin/Atorvastatin and Plavix (increased risk of falls). cc:: cc: Jose Sarkar MD Review of Systems Review of Systems Narrative Review of Systems: *Poor historian General appearance: NO weight change, yes fatigue, NO weakness, NO fever, yes chills/tremors, NO night sweats, No cough Skin: NO rash, NO itching, NO sores, NO moles HEENT: NO Trauma, NO nausea, NO vomiting, NO visual changes, NO blurry vision, NO double vision, NO tinnitus, NO vertigo, NO ear discharge, NO rhinorrhea, NO stuffiness, NO sneezing, NO allergy, NO epistaxis. NO Hoarseness, NO sore throat, NO swollen neck. Cardiac: NO Palpitations, NO dyspnea on exertion, NO orthopnea, NO paroxysmal nocturnal dyspnea, NO edema Respiratory: NO Shortness of Breath, NO Wheezing, NO Cough, NO Sputum, NO hemoptysis GI:NO appetite, NO nausea, NO vomiting, NO dysphagia, NO changes in bowel frequency, NO stool color, NO diarrhea, NO constipation, NO hemetemesis, NO hemorrhoids, NO melena, NO hematechezia, NO abdominal pain, NO jaundice Renal: NO frequency, NO hesitancy, NO urgency, NO hematuria, NO nocturia, NO incontinence MSK: NO muscle weakness, NO gout, NO arthritis, NO muscle stiffness Neuro: yes confused per family NO headaches, NO tremors, Yes weakness, NO paralysis, NO seizures, NO loss of consciousness, NO numbness. Hem: NO anemia, NO easy bruising/bleeding, NO petechiae, NO purpura Endo: NO heat/cold intolerance, NO excessive sweating, NO polyuria, NO polydipsia, NO polyphagia, NO thyroid problems, yes diabetes-currently no medication Pysch: NO mood, NO anxiety, NO depression Exam Vital Signs Temp Pulse Resp BP Pulse Ox O2 Del Method O2 Flow Rate 99.6 F 92 11 L 90/47 L 100 Nasal Cannula 2 05/16/25 08:00 05/16/25 09:00 05/16/25 09:00 05/16/25 09:00 05/16/25 09:00 05/16/25 08:00 05/16/25 07:58 Narrative Exam General Appearance: Alert & Oriented X2 waxes and wanes, well-nourished male who is lying in bed in no acute distress HEENT: Skull symmetrical and atraumatic. Conjunctivae pale pink and moist. Pupils equal, round, reactive to light and accommodation (PERRL). External ear without lesion or discharge. Dry oral mucosa. Cardio: Normal Rate and Rhythm with S1 and S2 heart sounds. No murmurs or extra heart sounds auscultated. No bruits on carotid auscultation. No peripheral edema or cyanosis. Lungs: Symmetric with good expansion. Chest and back non-tender. Breath sounds vesicular without crackles, wheezing or rhonchi Abdomen: Non-tender, Non-distended, Normal Reactive Bowel Sounds Neuro: Yes Alert, Yes cooperative, Yes oriented to person, Yes place, and NO time. Slurred speech. CN grossly intact. Upper motor strength 5/5 and Lower motor strength 2/5. Sensation intact. Results Labs 05/17/25 05:53 05/17/25 05:53 Labs: Short CBC 05/16/25 Range/Units 04:40 WBC 10.5 (3.8-10.6) Thou/mm3 Hgb 13.4 L (13.5-16.0) g/dL Hct 40.3 L (41.0-53.0) % Plt Count 161 (140-440) Thou/mm3 BMP 05/16/25 04:40 Sodium 137 Potassium 3.4 Chloride 97 L Carbon Dioxide 24.0 BUN 18 Creatinine 1.4 H Glucose 329 H Calcium 9.5 Cardiac Enzymes 05/16/25 Range/Units 04:40 Troponin I 0.067 H* (0.0-0.045) ng/mL Liver Function 05/16/25 Range/Units 04:40 Total Bilirubin 1.4 H (0.3-1.2) mg/dL Direct Bilirubin 0.7 H (0.0-0.3) mg/dL AST 27 (0-34) U/L ALT 28 (10-49) U/L Alkaline Phosphatase 117 H (46-116) U/L Albumin 3.8 (3.4-4.8) gm/dL Urine 05/16/25 Range/Units 05:45 Urine Color [place] (Lt Yel-Yel) Urine Clarity Turbid A (Clear/Hazy) Urine pH 6.0 (5.0-7.0) Ur Specific [place] 1.017 (1.001-1.035) Urine Protein 3+ A (Neg - Trace) Urine Glucose (UA) 3+ A (Negative) ABG Interpretation ABG results: 05/16/25 05:58 ABG pH 7.40 ABG pCO2 30 L ABG pO2 146 H ABG HCO3 19 L ABG O2 Saturation 100 H ABG Base Excess -5 L Quality Measures Quality Measures VTE prophylaxis Advance care planning discussed with:: patient Medications Home Medications and Allergies Home Medications ?Medication ?Instructions ?Recorded ?Confirmed ?Type doxazosin 4 mg tablet 4 mg PO QDAY 01/27/18 05/16/25 History losartan 50 mg tablet 50 mg PO QDAY 01/27/18 05/16/25 History metformin 1,000 mg tablet 500 mg PO QDAY 01/27/18 04/04/24 History levothyroxine 88 mcg tablet 88 mcg PO QDAY 04/04/24 05/16/25 History Allergies Allergy/AdvReac Type Severity Reaction Status Date / Time No Known Allergies Allergy Verified 01/27/18 12:04 Visit Medications Acetaminophen (Acetaminophen 325 Mg Tablet) 650 mg PO Q6H PRN PRN Reason: Fever >100.4 Stop: 06/15/25 06:07 Acetaminophen (Acetaminophen 325 Mg Tablet) 650 mg PO Q6H PRN PRN Reason: PAIN SCALE 1-3 (mild Stop: 06/15/25 06:07 Atorvastatin Calcium (Atorvastatin Calcium 20 Mg Tablet) 40 mg PO HS ALETA Stop: 06/15/25 20:59 Clopidogrel Bisulfate (Clopidogrel Bisulfate 75 Mg Tablet) 75 mg PO QDAY ALETA Stop: 06/15/25 08:59 Dextrose (Dextrose 50%-Water Inj 50 Ml Syringe) 25 ml IV Q15MIN PRN PRN Reason: BG 50-70 responsive npo pt Stop: 06/15/25 06:12 Dextrose (Dextrose 50%-Water Inj 50 Ml Syringe) 50 ml IV Q15MIN PRN PRN Reason: BG <50 OR BG <70 & pt unresponsive Stop: 06/15/25 06:12 Glucagon (Glucagon Inj 1 Mg Vial) 1 mg IM Q15MIN PRN PRN Reason: BG <70, and no IV access Heparin Sodium (Porcine) (Heparin Sod Inj 5000 Unit/Ml Vial) 5,000 unit SC Q12HR ALETA Stop: 05/30/25 08:59 Last Admin: 05/16/25 09:46 Dose: 5,000 unit Piperacillin Sod/Tazobactam (Sod 4.5 gm/ Sodium Chloride) 100 mls @ 200 mls/hr IV Q8HR ALETA Stop: 05/23/25 13:59 Sodium Chloride (Ns) 1,000 mls @ 75 mls/hr IV .[id number] ALETA Stop: 06/15/25 06:29 Last Infusion: 05/16/25 07:49 Dose: 0 mls/hr Insulin Human Lispro (Insulin Lispro (Admelog) 1 Unit/0.01 Ml Unit) 0 unit SC AC ALETA; Protocol Stop: 06/15/25 07:29 Last Admin: 05/16/25 07:46 Dose: 4 unit Morphine Sulfate (Morphine Sulf Inj 10 Mg/Ml Vial) 1 mg IVP Q4HR PRN PRN Reason: PAIN SCALE 7-10 (Severe Stop: 05/21/25 06:07 Ondansetron HCl (Ondansetron Inj 2 Mg/Ml Inj 2 Ml) 4 mg IVP Q6H PRN; Protocol PRN Reason: NAUSEA OR VOMITING Stop: 06/15/25 06:07 Oxycodone/Acetaminophen (Oxycodone/Apap 5/325 Tablet) 1 tab PO Q6H PRN PRN Reason: PAIN SCALE 4-6 (Moderate Stop: 05/21/25 06:07 Pantoprazole Sodium (Pantoprazole Inj 40 Mg Vial) 40 mg IVP QDAY [facility] Stop: 06/15/25 08:59 Last Admin: 05/16/25 09:47 Dose: 40 mg Pharmacy Consult (Vancomycin Pharmacy To Dose 1 Each Each) 1 each IV QDAY PRN PRN Reason: PROTOCOL Stop: 06/15/25 08:59 Sennosides (Senna Tablet) 1 tab PO QDAY PRN; Protocol PRN Reason: constipation Stop: 06/15/25 06:07 Discontinued Medications Albuterol/Ipratropium (Albuterol/Ipratropium (Duoneb) Rt Felisha 3 Ml Nebu) 3 ml INH X1 ONE Stop: 05/16/25 05:49 Enoxaparin Sodium (Enoxaparin Sod Inj 40 Mg/0.4 Ml Syringe) 40 mg SC QDAY ALETA Stop: 05/30/25 08:59 Sodium Chloride (Ns) 1,000 mls @ 999 mls/hr IV .Q1H1M ONE Stop: 05/16/25 05:41 Last Infusion: 05/16/25 06:31 Dose: Infused Acetaminophen (Ofirmev Inj) 1,000 mg in 100 mls @ 250 mls/hr IV X1 ONE Stop: 05/16/25 05:30 Last Infusion: 05/16/25 05:56 Dose: Infused Sodium Chloride (Ns) 1,000 mls @ 999 mls/hr IV .Q1H1M ONE Stop: 05/16/25 06:07 Last Infusion: 05/16/25 08:00 Dose: Infused Ceftriaxone Sodium/Dextrose (Rocephin/D5w 1gm Iv Premix) 1 gm in 50 mls @ 100 mls/hr IV X1 ONE Stop: 05/16/25 05:51 Last Infusion: 05/16/25 06:10 Dose: Infused Piperacillin Sod/Tazobactam (Sod 4.5 gm/ Sodium Chloride) 100 mls @ 200 mls/hr IV X1 ONE Stop: 05/16/25 06:59 Last Infusion: 05/16/25 09:07 Dose: Infused Vancomycin HCl 1,000 mg/ (Sodium Chloride) 250 mls @ 120 mls/hr IV X1 ONE Stop: 05/16/25 08:34 Last Admin: 05/16/25 07:30 Dose: 120 mls/hr Lactated Ringer's (Lactated Ringers) 1,000 mls @ 999 mls/hr IV .Q1H1M ONE Stop: 05/16/25 08:12 Last Infusion: 05/16/25 09:08 Dose: Infused Ketorolac Tromethamine (Ketorolac Inj 30 Mg/Ml Vial) 15 mg IVP X1 ONE Stop: 05/16/25 05:08 Last Admin: 05/16/25 05:32 Dose: 15 mg Methylprednisolone Sodium Succinate (Methylprednisolone Sod Succ 62.5 Mg/Ml 2ml Vial) 125 mg IVP X1 ONE Stop: 05/16/25 05:49 Last Admin: 05/16/25 06:13 Dose: 125 mg Ondansetron HCl (Ondansetron Inj 2 Mg/Ml Inj 2 Ml) 4 mg IVP X1 ONE; Protocol Stop: 05/16/25 04:42 Last Admin: 05/16/25 05:33 Dose: 4 mg Assessment & Plan Plan Patient is a 74 year old male with a past medical history of hypertension, hyperlipidemia, history of diabetes mellity type 2 (denied current medication), and previous CVA, multiple nonhemorrhagic infarcts at occipital lobe, left posterior, and left posterior parietal lobe w/ right sided motor deficits who was admitted for actue metaboic encephaloapthy. #Acute Metabolic Encephaopathy, likely secondary to UTI #UTI #History of nonhemorrhagic infarcts at occipital lobe, left posterior, and left posterior parietal lobe w/ right sided motor deficits (2018) Patient has had gradual decline memory and has required increased assistance with ADL, but recently patinet has had worseing confusion per family. Acute metabolic encephalpathy likely secondary to UTI and lactic acid with soft blood pressure. past medical history of BPH likely contributing to SWEETIE/UTI. Stroke less likely. No seizure likely activity, no EEG at this time. Given microvascular white matter changes concern for vascular dementia MRI: No acute infarct. Old infarct present. Prominent chronic microvascular white matter changes TSH 7.90 Free T4 1.02 A1c pending (family denied metfomrin use) Plan -No EEG recommended at this time -Continue home medication of Plavix 75 mg once daily and Atorvastatin 40 mg HS (home medication of Simvastatin) -Continue to treat underlying cause/UTI and antibiotics -Consider increasing NS 75-->150 given soft blood pressure and continued lactic acid that may contribute to altered state -Replete electrolytes as needed -Consider Midodrine -Follow up with PT #Sepsis, likely secondary to UTI #UTI #SIRs #Lactic Acidosis #SWEETIE #Hyperglycemia #Diabetes Mellitus Type 2 non insulin depedent #Hypothyrodism #HTN #HLD #Normocytic Anemia #troponemia #hyperbilirubinemia #BPH - The patient's plan was discussed with attending Dr. Marilee Arana MD PGY2 Internal Medicine Attending Provider Attestation/Addendum I personally have seen and examined the patient at the bedside and agreed with the resident's findings, assessment and plan of care. 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 Encourage him to participate with physical therapy.
[2025-05-16 10:59] LABS: Lactate (Lactic Acid) 4.3 mMol/L (0.4-2.0)
[2025-05-16 11:07] LABS: Reflex Lactate? Y
[2025-05-16 11:09] LABS: Troponin I 0.080 ng/mL (0.0-0.045)
--- NOTE | 2025-05-16 11:23 | PC.CC ---
SALES REPRESENTATIVE GIRLS' APPARELAltagracia and JOSIAHWAriela made face to face contact with patient with intention to complete initial assessment. Patient was not alert and oriented. [employer]ES REPRESENT[employer]IVE [employer] attempted to make telephone contact with Daughters listed on demographics Virginia's phone was not reachable and Robyn phone went to voicemail left message.
--- NOTE | 2025-05-16 12:30 | PC.NURSE ---
pt went to MRI
[2025-05-16 13:29] LABS: Reflex Lactate? Y
[2025-05-16 14:09] LABS: Lactate (Lactic Acid) 3.4 mMol/L (0.4-2.0)
--- NOTE | 2025-05-16 14:12 | ESPR_ITS ---
<Statement entered by Wesley Peres MD - 05/16/25 14:47> I have reviewed the note and agree with the resident's assessment & plan with exceptions as below. I have personally reviewed labs, imaging, home meds/prior records, examined the patient, formulated and discussed management plan with the IM team. Pt examined at bedside today. Pt currently admitted for CVA rule out and sepsis 2/2 UTI. Will decreased coverage for UTI to rocephin as pt does not have hx documented of ESBL UTI or Pseudomonas UTI. Pending MRI at this time. Neurology on consult, appreciate recommendations. Will follow up with other imaging studies, Head neck CTA, carotid duplex. Pt's BP running a bit low borderline 65, fluid responsive, will continue to replete appropriately, no hx of ESRD/cirrhosis, last echo does not seem to show HF, preserved EF and Normal LV. Follow up cultures, repeat hematology and chemistry in AM, continue with antipyretics. Will continue with plavix at this time per teleneuro recs, however plavix seems to be home medicine for patient, need to establish why patient is taking this medicine. Wesley Peres, PGY-2 Internal Medicine Documentation for date of: 05/16/25 Subjective Subjective Interval history: No acute events overnight. Patient seen and examined at bedside. Vitals and labs reviewed. Patient's daughter was at bedside this morning in the ED. Patient said he is doing okay, which was hard to understand. Patient appears alert to what is going on but is not able to express his thoughts appropriately sometimes. Patient denies fever, chest pain, shortness of breath, abdominal Exam Vital Signs Temp Pulse Resp BP Pulse Ox O2 Del Method O2 Flow Rate 99.6 F 85 12 113/63 100 Nasal Cannula 2 05/16/25 08:05/16/25 12:05/16/25 12:00 05/16/25 12:00 05/16/25 12:00 05/16/25 08:05/16/25 07:58 Narrative Exam General: No acute distress; Alert, dysarthria is reason for not being able to determine degree of orientation Skin: Warm, dry, intact, no obvious rash. HENT: NCAT, EOMI, not icteric. External ears normal. No rhinorrhea. Dry mucous membranes Cardiovascular: Regular rate and rhythm, no murmur, +S1/S2. Respiratory: Lungs CTAB GI: Soft, nontender, non-distended. No guarding or rebound tenderness. Extremities: no edema, no cyanosis, no clubbing. Extremity pulses present Neuro: Right sided hemiparesis, R facial droop from previous stroke; Left sided strength well intact; sensation intact; aphasic Psychiatric: Cooperative, appropriate affect. Objective Labs 05/16/25 04:40 05/16/25 04:40 Labs: Laboratory Results - last 24 hr 05/16/25 05/16/25 05/16/25 04:40 05:45 05:58 WBC 10.5 RBC 4.55 Hgb 13.4 L Hct 40.3 L MCV 89 MCH 29.5 MCHC 33.3 RDW Std Deviation 42.1 Plt Count 161 Neut % (Auto) 94 H Lymph % (Auto) 3 L [place] % (Auto) 2 Eos % (Auto) 0 Baso % (Auto) 0 Neut # (Auto) 9.8 H Lymph # (Auto) 0.3 L [place] # (Auto) 0.2 Eos # (Auto) 0.0 Baso # (Auto) 0.0 Immature Gran # (Auto) 0.08 H Absolute Nucleated RBC 0.00 Immature Gran % 1 H Nucleated RBC % 0 ESR 23 H PT 12.9 H INR 1.2 APTT 30.8 Puncture Site Right Brachial ABG pH 7.40 ABG pCO2 30 L ABG pO2 146 H ABG HCO3 19 L ABG O2 Saturation 100 H ABG Base Excess -5 L Oxygen Liter Flow 3 Sodium 137 Potassium 3.4 Chloride 97 L Carbon Dioxide 24.0 Anion Gap 16 BUN 18 Creatinine 1.4 H Estim Creat Clear Calc 38.0 L eGFR 52 L BUN/Creatinine Ratio 13 Glucose 329 H Calculated Osmolality 288 Lactic Acid 7.1 H* Calcium 9.5 Corrected Calcium 9.7 Magnesium 1.9 Total Bilirubin 1.4 H Direct Bilirubin 0.7 H AST 27 ALT 28 Alkaline Phosphatase 117 H Troponin I 0.067 H* C-Reactive Prot, Quant 6.4 H B-Natriuretic Peptide 131 H Total Protein 6.7 Albumin 3.8 Globulin 2.9 Albumin/Globulin Ratio 1.3 TSH 7.90 H Free T4 Ur Collection Type Clean Catch Urine Color Keila Urine Clarity Turbid A Urine pH 6.0 Ur Specific [place] 1.017 Urine Protein 3+ A Urine Glucose (UA) 3+ A Urine Ketones Negative Urine Blood 3+ A Urine Nitrite Negative Urine Bilirubin Negative Urine Urobilinogen (Auto) 3.0 Ur Leukocyte Esterase Positive Urine RBC 195 H Urine WBC 5141 H Ur Squamous Epith Cells 0 Urine Bacteria 3+ A Ur Culture Indicated? Yes 05/16/25 05/16/25 07:50 10:23 WBC RBC Hgb Hct MCV MCH MCHC RDW Std Deviation Plt Count Neut % (Auto) Lymph % (Auto) [place] % (Auto) Eos % (Auto) Baso % (Auto) Neut # (Auto) Lymph # (Auto) [place] # (Auto) Eos # (Auto) Baso # (Auto) Immature Gran # (Auto) Absolute Nucleated RBC Immature Gran % Nucleated RBC % ESR PT INR APTT Puncture Site ABG pH ABG pCO2 ABG pO2 ABG HCO3 ABG O2 Saturation ABG Base Excess Oxygen Liter Flow Sodium Potassium Chloride Carbon Dioxide Anion Gap BUN Creatinine Estim Creat Clear Calc eGFR BUN/Creatinine Ratio Glucose Calculated Osmolality Lactic Acid 4.5 H* 4.3 H* Calcium Corrected Calcium Magnesium Total Bilirubin Direct Bilirubin AST ALT Alkaline Phosphatase Troponin I 0.080 H* C-Reactive Prot, Quant B-Natriuretic Peptide Total Protein Albumin Globulin Albumin/Globulin Ratio TSH Free T4 1.02 Ur Collection Type Urine Color Urine Clarity Urine pH Ur Specific [place] Urine Protein Urine Glucose (UA) Urine Ketones Urine Blood Urine Nitrite Urine Bilirubin Urine Urobilinogen (Auto) Ur Leukocyte Esterase Urine RBC Urine WBC Ur Squamous Epith Cells Urine Bacteria Ur Culture Indicated? ABG Interpretation ABG results: 05/16/25 05:58 ABG pH 7.40 ABG pCO2 30 L ABG pO2 146 H ABG HCO3 19 L ABG O2 Saturation 100 H ABG Base Excess -5 L Quality Measures Quality Measures VTE prophylaxis Advance care planning discussed with:: patient Assessment & Plan Assessment Current Active Medications: Generic Name Dose Route Start Last Admin Trade Name Freq PRN Reason Stop Dose Admin Acetaminophen 650 mg 05/16/25 06:08 Acetaminophen 325 Mg Tablet PO 06/15/25 06:07 Q6H PRN Fever >100.4 Acetaminophen 650 mg 05/16/25 06:08 Acetaminophen 325 Mg Tablet PO 06/15/25 06:07 Q6H PRN PAIN SCALE 1-3 (mild Atorvastatin Calcium 40 mg 05/16/25 21:00 Atorvastatin Calcium 20 Mg Tablet PO 06/15/25 20:59 HS ALTEA Clopidogrel Bisulfate 75 mg 05/16/25 09:00 05/16/25 11:04 Clopidogrel Bisulfate 75 Mg Tablet PO 06/15/25 08:59 Not Given QDAY ALETA Dextrose 25 ml 05/16/25 06:13 Dextrose 50%-Water Inj 50 Ml Syringe IV 06/15/25 06:12 Q15MIN PRN BG 50-70 responsive npo pt Dextrose 50 ml 05/16/25 06:13 Dextrose 50%-Water Inj 50 Ml Syringe IV 06/15/25 06:12 Q15MIN PRN BG <50 OR BG <70 & pt unresponsive Glucagon 1 mg 05/16/25 06:13 Glucagon Inj 1 Mg Vial IM Q15MIN PRN BG <70, and no IV access Heparin Sodium (Porcine) 5,000 unit 05/16/25 09:00 05/16/25 09:46 Heparin Sod Inj 5000 Unit/Ml Vial SC 05/30/25 08:59 5,000 unit Q12HR [facility] Administration Sodium Chloride 1,000 mls @ 75 mls/hr 05/16/25 06:30 05/16/25 07:49 Ns IV 06/15/25 06:29 0 mls/hr .[id number] [facility] Infusion Ceftriaxone Sodium/Dextrose 1 gm in 50 mls @ 100 mls/hr 05/17/25 09:00 Rocephin/D5w 1gm Iv Premix IV 05/24/25 08:59 QDAY [facility] Insulin Human Lispro 0 unit 05/16/25 07:30 05/16/25 12:30 Insulin Lispro (Admelog) 1 Unit/0.01 Ml Unit SC 06/15/25 07:29 Not Given AC [facility] Protocol Morphine Sulfate 1 mg 05/16/25 06:08 Morphine Sulf Inj 10 Mg/Ml Vial IVP 05/21/25 06:07 Q4HR PRN PAIN SCALE 7-10 (Severe Ondansetron HCl 4 mg 05/16/25 06:08 Ondansetron Inj 2 Mg/Ml Inj 2 Ml IVP 06/15/25 06:07 Q6H PRN NAUSEA OR VOMITING Protocol Oxycodone/Acetaminophen 1 tab 05/16/25 06:08 Oxycodone/Apap 5/325 Tablet PO 05/21/25 06:07 Q6H PRN PAIN SCALE 4-6 (Moderate Pantoprazole Sodium 40 mg 05/16/25 09:00 05/16/25 09:47 Pantoprazole Inj 40 Mg Vial IVP 06/15/25 08:59 40 mg QDAY ALETA Administration Sennosides 1 tab 05/16/25 06:08 Senna Tablet PO 06/15/25 06:07 QDAY PRN constipation Protocol Plan 74M with h/o CVA (residual R hemiparesis, aphasia), DM2, HTN, HLD, and recurrent UTIs presenting with acute confusion, slurred speech, fever (101.4?F), vomiting, and shivering; Admitted for sepsis due to likely UTI. #Sepsis, unspecified organism #Acute UTI Likely urinary source with hx UTI's and UA currently showing UTI though; aspiration vs other infection also possible. Initially presented with septic shock (febrile, tachycardic, lactate 7.1, MAP 63 on arrival with hypotension refractory after 500 cc NS). Now with MAP improving after additional IV fluids (63 ->65 -> 89). Was given Zosyn, Vanc intially, discontinued -Maintenance NS 75 mL/hr. -Rocephin 1 gm IV qd. -Trend lactate q4?6 hrs until <2. -Blood & urine cultures pending ? follow up results. -Tylenol PRN fever. -Strict I&O. #Metabolic encephalopathy Likely secondary to sepsis and metabolic derangements; possible stroke recrudescence vs recurrent stroke. CT Head NEGATIVE Carotid Doppler NEGATIVE MRI brain w/o contrast NEGATIVE (chronic microvascular white matter change) -Neuro checks q4h. -Routine EEG. -Speech rec dysphagia pureed -PT referred -HOB 30?. 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 Current deficits appear close to baseline but worsened confusion. -Continue Clopidogrel 75 mg daily. -Follow teleneurology recommendations. #SWEETIE, likely pre-renal secondary to vomiting, decreased PO intake Patient presented with Cr 1.4, baseline appears to be closer to 1.0 s/p 3 L IV fluids minimal urine output -monitor UOP -Continue IV hydration -Avoid nephrotoxins -Monitor renal panel -Renally dosed medications -Hold any TRAE/ARB/diuretics #Type 2 diabetes mellitus with hyperglycemia Glucose 329 on admission; home metformin stopped by family due to hypoglycemia concerns. -SSI protocol with FS q6h. -Hold metformin (renal function and lactic acidosis). -Target BG 140?180. #Hypothyroidism, unspecified TSH 7.9. Unclear home regimen. -Verify med rec. -Resume levothyroxine if confirmed. #Hypertension Currently hypotensive; holding all antihypertensives. -Hold home meds. -Resume when hemodynamically stable. #Hyperlipidemia, unspecified Stable. -Atorvastatin 40 mg po hs Health Maintenance Disposition: Admit to medicine, stroke/telemetry floor. Feeding: NPO until swallow eval. Thromboprophylaxis: Heparin SQ 5,000 units q12h. GI prophylaxis: Pantoprazole 40 mg IV daily. Code Status: Full Code (to be reconfirmed with daughter). Patient plan of care was discussed with the attending physician, Dr. Anderson & senior resident Dr. Larisa Willams MD PGY-1 Attending Provider Attestation/Addendum I have discussed and was present for the essential components of the history, physical examination, diagnosis, and treatment plan with the resident. I agree with the patient's care as documented by the resident and amended herein by me. Shaheen Anderson DO. Although this document has been carefully reviewed, there may still be some phonetic and other typographical errors. These errors are purely grammatical due to imperfections in the software program and should not be construed in any way to compromise the substance of the patient's medical care during this visit. Patient seen and evaluated this AM. At time of my bedside visit this morning, the patient was improved, vital signs were stable, Tmax overnight 101.4, MAP was 89 when I saw the patient. On nasal cannula 2 L, SpO2 100%. Significant labs included WBC of 10.5, sodium and potassium WNL, creatinine 1.4. Lactic acid still elevated however downtrending, presently 4.5. Troponin 0.67. For the patient's sepsis secondary to UTI, will de-escalate antibiotics, start ceftriaxone, the patient has no history of MDRO organisms, will wait for urine culture, blood cultures and specificities. The patient did receive copious fluids which should improve his SWEETIE. His acute encephalopathy likely toxic metabolic in nature, MRI was unremarkable for any acute intracranial pathology, neurology however is on board we will continue Plavix which the patient was on for previous CVA. Will trend the lactic acid and ensure it is downtrending, will continue to monitor closely.
[2025-05-16 17:06] LABS: Reflex Lactate? Y
[2025-05-16 17:22] LABS: Lactate (Lactic Acid) 3.1 mMol/L (0.4-2.0)
[2025-05-16 20:15] LABS: Reflex Lactate? Y
[2025-05-16 20:18] LABS: Lactate (Lactic Acid) 3.1 mMol/L (0.4-2.0)
[2025-05-16] MEDS: ATORVASTATIN CALCIUM 20 MG TABLET 40 MG PO (22:01)
[2025-05-16 23:16] LABS: Reflex Lactate? Y
[2025-05-16 23:49] LABS: Lactic Acid, 3 HR 2.4 mMol/L (0.4-2.0)
[2025-05-17] VITALS (8 sets, daily range): BP systolic 93–129; BP diastolic 51–70; PULSE 66–105; RESP 10–99; TEMP 35.8–36.9; O2SAT 99–100; BMI 22.4; BMI 12.0
[2025-05-17 06:12] LABS: Basophils # (Auto) 0.0 Thou/mm3 (0.0-0.2); Basophils % (Auto) 0 % (0-2.5); Eosinophils # (Auto) 0.0 Thou/mm3 (0.0-0.5); Eosinophils % (Auto) 0 % (0-10); Hematocrit 30.9 % (41.0-53.0); Hemoglobin 10.8 g/dL (13.5-16.0); Immature Granulocytes Auto 0.27 Thou/mm3 (0.00-0.00); Lymphocytes # (Auto) 0.8 Thou/mm3 (1.0-4.8); Lymphocytes % (Auto) 4 % (10-50); Mean Corpuscular HGB Conc 35.0 g/dl (31.0-37.0); Mean Corpuscular Hemoglobin 30.8 pg (25.0-35.0); Mean Corpuscular Volume 88 fL (80-100); Monocytes # (Auto) 1.0 Thou/mm3 (0.0-0.8); Monocytes % (Auto) 6 % (0-12); Neutrophils # (Auto) 16.2 Thou/mm3 (1.8-7.7); Neutrophils % (Auto) 88 % (37-80); Nucleated Red Blood Cell # 0.00 Thou/mm3 (0.00-0.00); Nucleated Red Blood Cell % 0 /100 WBC (0); Platelet Count 116 Thou/mm3 (140-440); RDW Standard Deviation 43.0 fL (35.1-43.9); Red Blood Count 3.51 Miln/mm3 (4.50-5.90); White Blood Count 18.3 Thou/mm3 (3.8-10.6)
[2025-05-17 06:18] LABS: INR 1.3 (0.9-1.3); Prothrombin Time 14.0 Seconds (9.0-12.2)
[2025-05-17 06:24] LABS: Glucose Estimated Average 157 mg/dL (80-131); Hemoglobin A1C 7.1 % Hgb (4.8-6.0)
[2025-05-17 06:35] LABS: Alanine Aminotransferase 18 U/L (10-49); Albumin, Serum 2.9 gm/dL (3.4-4.8); Albumin/Globulin Ratio 1.3 (1.2-2.2); Alkaline Phosphatase 67 U/L (46-116); Anion Gap 9 (7-16); Aspartate Amino Transferase 17 U/L (0-34); BUN/Creatinine Ratio 22 Ratio (12-20); Bilirubin,Total 0.7 mg/dL (0.3-1.2); Blood Urea Nitrogen 22 mg/dL (9-23); Calcium 8.4 mg/dL (8.3-10.6); Calcium (Corrected) 9.3 mg/dL (8.5-10.1); Carbon Dioxide 25.4 mMol/L (20.0-31.0); Cardiac Risk Estimate 2.2 RATIO (4.0-6.7); Chloride 106 mMol/L (98-107); Cholesterol 76 mg/dL (132-200); Creatinine (Component) 1.0 mg/dL (0.6-1.3); Estimated Creatinine Clearance 58.6 mL/min (>60); Globulin 2.3 gm/dL (2.3-3.5); Glucose 196 mg/dL (74-106); HDL Cholesterol 34 mg/dL (40-60); LDL Cholesterol,Calculated 27 mg/dL (0-130); Magnesium 1.5 mg/dL (1.6-2.6); Osmolality,Calculated 287 (275-295); Phosphorous 3.2 mg/dL (2.4-5.1); Potassium 4.8 mMol/L (3.4-5.1); Sodium 140 mMol/L (136-145); Thyroid Stimulating Hormone 1.78 uIU/mL (0.55-4.78); Total Protein 5.2 gm/dL (5.7-8.2); Triglycerides 77 mg/dL (30-150); eGFR > 60 See Note
[2025-05-17] MEDS: INSULIN LISPRO (AdmeLOG) 1 UNIT/0.01 ML UNIT SC ×3 (08:18→17:13)
[2025-05-17] MEDS: HEPARIN SOD INJ 5000 UNIT/ML VIAL SC (08:19)
[2025-05-17] MEDS: CLOPIDOGREL BISULFATE 75 MG TABLET PO (08:26)
[2025-05-17] MEDS: cefTRIAXone/D5w 1gm IV premix 1 GM/50 ML BAG IV (08:27)
[2025-05-17] MEDS: VANCOMYCIN/WATER 1GM IVPB 200 ML IV (09:49)
[2025-05-17] MEDS: INSULIN DEGLUDEC 5 UNIT/0.05 ML (PER 5 UNITS) SC ×2 (09:50→21:05)
--- NOTE | 2025-05-17 10:41 | PC.SS ---
DR[employer] CANS BACK TENDER attempted phone contact with patient's daugher Virginia Davis [phone]. No response. DRY [employer] BACK TENDER left voicemail requesting return call.
--- NOTE | 2025-05-17 10:44 | ECHO_ITS ---
Transthoracic Echo Report Ht (in): 66 Wt (lb): 143 Exam Location: Echo Lab Status: Inpatient Ordained Minister: Rachele [place] Indications: Procedure Performed: BP: 93 / 51 HR: 82 MEASUREMENTS (Male / Female) Normal Values 2D ECHO LV Diastolic Diameter PLAX 3.9 cm 4.2 - 5.9 / 3.9 - 5.3 cm LV Systolic Diameter PLAX 2.6 cm IVS Diastolic Thickness 0.8 cm 0.6 - 1.0 / 0.6 - 0.9 cm LVPW Diastolic Thickness 1.4 cm 0.6 - 1.0 / 0.6 - 0.9 cm LV Relative Wall Thickness 0.6 LVOT Diameter 1.9 cm LA Volume Index 31.2 cm?/m? 16 - 28 cm?/m? M-MODE AV Cusp Separation MM 1.9 cm DOPPLER AV Peak Velocity 156.0 cm/s AV Peak Gradient 9.7 mmHg AV Mean Gradient 5.0 mmHg AV Velocity Time Integral 34.9 cm LVOT Peak Velocity 103.0 cm/s LVOT Peak Gradient 4.2 mmHg LVOT Velocity Time Integral 20.9 cm LVOT Cardiac Index 2788.3 cm?/min?m? AV Area Cont Eq vti 1.7 cm? AV Area Cont Eq pk 1.9 cm? MV Area PHT 3.9 cm? Mitral E Point Velocity 78.6 cm/s Mitral A Point Velocity 117.0 cm/s Mitral E to A Ratio 0.7 TR Peak Velocity 155.5 cm/s TR Peak Gradient 9.7 mmHg PV Peak Velocity 111.0 cm/s PV Peak Gradient 4.9 mmHg FINDINGS Left Ventricle Normal left ventricular size, wall thickness, systolic function with no obvious regional wall motion abnormalities. The ejection fraction is visually estimated at 55--60%. Unable to to evaluate diastolic function due to technically difficult study. Right Ventricle The right ventricle is normal in size and systolic function. Left Atrium The left atrium is normal by two-dimensional, color flow and Doppler imaging with no structural abnormalities, no thrombus formation present. Right Atrium The right atrium is normal by two-dimensional imaging, color flow and Doppler imaging with no structural abnormalities, no thrombus formation present. Atrial Septum The interatrial septum appears normal with no evidence of a shunt. Aorta The aorta is normal by two-dimensional, color flow and Doppler interrogation. Mitral Valve Calcification of the mitral valve leaflets. The anteriro mitral valve leaflet is mildly calcified. Trace to mild mitral regurgitation. Aortic Valve Mild aortic leaflet sclerosis with normal valve excursion.Trace to mild aortic valve regurgitation. Tricuspid Valve The tricuspid valve is normal by two-dimensional, color flow and Doppler interrogation. There is trace tricuspid valve regurgitation. Pulmonic Valve The pulmonic valve is not well visualized. There is no significant pulmonic valve regurgitation. Vessels The pulmonary artery appears normal. IVC NWV Pericardium The pericardium is normal by two-dimensional imaging. There is no significant pericardial effusion. CONCLUSIONS Indication: GPC bacteremia Poor images and technically difficult study Normal LV size and function. Grade I diastolic dysfunction. Estimated EF 55-60% Normal RV size and function The anterior mitral valve leaflet is mildly calcified no evidence of definite vegetations detected Mild AV sclerosis without stenosis, no vegetations detected there is evidence of mild aortic valve regurgitation. Trace to mild mitral and tricuspid regurgitation insignificant. If clinical suspicion is very high and 2 blood cultures positive consider doing transesophageal echo. Janis Moya (Electronically Signed) Final Date: 18 May 2025 17:44
--- NOTE | 2025-05-17 10:45 | XR_ITS ---
Examination: CT chest, without intravenous contrast. Sagittal and coronal 2-D reconstructions. Exam date and time: May 17, 2025, 1320 hours, comparison May 04, 2024 INDICATIONS: Subtle opacity parenchymal disease in the left upper lobe on plain film chest x-ray May 16, 2025 CTDI:vol (mGy) 15.6 DLP: (mGycm) 553 Technique: Multiple 3.0 mm axial sections of the chest to been obtained. Bone and lung density settings are obtained. Sagittal and coronal 2-D reconstructions have been obtained. Low dose protocols were performed. One or more of the following dose reduction techniques were used; automated exposure control, adjustment of the mA and/or KV according to patient size, use of iterative reconstruction technique. Findings: Heavy thoracic aortic calcification. Pulmonary artery segments are not enlarged. Mild enlargement cardiac contour Again noted nodular scarring in the left apex, also depicted on the May 04, 2024 exam Stable nodule at the right apex Stable scarring in the right upper lobe No interval pneumonia or pulmonary edema Small left pleural effusion No visualized liver lesion No pancreatic mass Kidneys partially visualized no hydronephrosis IMPRESSION: Stable probable parenchymal scarring in both lungs compared to the May 04, 2024 exam, no interval pneumonia or pulmonary edema Recommend continued follow-up [address] chest without contrast
[2025-05-17] MEDS: SODIUM CHLORIDE 0.9% 1000 ML 1,000 ML 999 ML IV (11:39)
--- NOTE | 2025-05-17 12:33 | PC.SS ---
GUEST ADVISOR conducted bedside contact with the patient to conduct initial assessment and to discuss discharge planning.? At bedside with patient was daughter, Virginia Davis .? Patient is Arabic speaking.? Daughter provided information for assessment and discharge planning.? Patient resides at home with daughter.? Patient utilizes a wheel chair for mobility. ?Patient does not utilize home oxygen.? Patient requires assistance with the completion of ADL?s.? Patient is aligned with [employer].? Patient?s medical surrogate decision maker is daughter, Virginia Davis.? Patient?s PCP is Dr. Murphy, [facility].? The patient does not possess any specialty providers.? The patient does not participate with dialysis.? The patient is diabetic, takes Metformin.? Discharge plan is for the patient to return home at the time of discharge.? If home health is recommended, preferred agency is [facility].? Patient possesses transport coverage.? No discharge needs identified by the patient.? No further intervention required at this time, certified social workers in health care will be available to address any further concerns.? Next of Kin: Virginia Susan D/C Plan: Home Address: [facility]. [facility]
--- NOTE | 2025-05-17 12:46 | ESPR_ITS ---
<Statement entered by Marcia Tucker MD - 05/18/25 05:12> Patient was seen and examined at bedside. I agree on the assessment and plan on this note. - Patient's plan and care discussed with my attending, Dr. Justin Tucker MD Internal Medicine PGY-3 Documentation for date of: 05/17/25 Subjective Subjective Interval history: No acute events overnight. Patient seen and examined at bedside with daughter present. Vitals and labs reviewed. This morning patient was seeming more alert. Patient is able to understand, but has a hard time expressing clearly what he is trying to say. Patient responded with yes/no head shakes to questions. Patient denies fever, chest pain, shortness of breath Exam Vital Signs Temp Pulse Resp BP Pulse Ox O2 Del Method O2 Flow Rate 96.5 F L 105 H 15 93/51 L 100 Nasal Cannula 2 05/17/25 08:00 05/17/25 08:00 05/17/25 08:00 05/17/25 08:00 05/17/25 08:00 05/17/25 08:00 05/17/25 08:00 Narrative Exam General: No acute distress; A&Ox2 likely; Alert, dysarthria is reason for not being able to determine degree of orientation Skin: Warm, dry, intact, no obvious rash. HENT: NCAT, EOMI, not icteric. External ears normal. No rhinorrhea. Dry mucous membranes Cardiovascular: Regular rate and rhythm, no murmur, +S1/S2. Respiratory: Lungs normal sounding, CTAB GI: Soft, nontender, non-distended. No guarding or rebound tenderness. Extremities: no edema, no cyanosis, no clubbing. Extremity pulses present Neuro: Right sided hemiparesis, mild R facial droop from previous stroke; Left sided strength well intact; sensation intact; aphasic Psychiatric: Cooperative, appropriate affect. Objective Labs 05/18/25 05:39 05/18/25 05:39 Labs: Laboratory Results - last 24 hr 05/16/25 05/16/25 05/16/25 13:50 17:01 20:10 WBC RBC Hgb Hct MCV MCH MCHC RDW Std Deviation Plt Count Neut % (Auto) Lymph % (Auto) [place] % (Auto) Eos % (Auto) Baso % (Auto) Neut # (Auto) Lymph # (Auto) [place] # (Auto) Eos # (Auto) Baso # (Auto) Immature Gran # (Auto) Absolute Nucleated RBC Immature Gran % Nucleated RBC % PT INR Sodium Potassium Chloride Carbon Dioxide Anion Gap BUN Creatinine Estim Creat Clear Calc eGFR BUN/Creatinine Ratio Glucose Estimated Ave Glu mg/dL Hemoglobin A1c Calculated Osmolality Lactic Acid 3.4 H 3.1 H 3.1 H Calcium Corrected Calcium Phosphorus Magnesium Total Bilirubin AST ALT Alkaline Phosphatase Total Protein Albumin Globulin Albumin/Globulin Ratio Triglycerides Cholesterol LDL Cholesterol, Calc HDL Cholesterol Cholesterol/HDL Ratio TSH 05/16/25 05/17/25 23:31 05:53 WBC 18.3 H D RBC 3.51 L Hgb 10.8 L D Hct 30.9 L MCV 88 MCH 30.8 MCHC 35.0 RDW Std Deviation 43.0 Plt Count 116 L D Neut % (Auto) 88 H Lymph % (Auto) 4 L [place] % (Auto) 6 Eos % (Auto) 0 Baso % (Auto) 0 Neut # (Auto) 16.2 H Lymph # (Auto) 0.8 L [place] # (Auto) 1.0 H Eos # (Auto) 0.0 Baso # (Auto) 0.0 Immature Gran # (Auto) 0.27 H Absolute Nucleated RBC 0.00 Immature Gran % 2 H Nucleated RBC % 0 PT 14.0 H INR 1.3 Sodium 140 Potassium 4.8 D Chloride 106 Carbon Dioxide 25.4 Anion Gap 9 BUN 22 Creatinine 1.0 Estim Creat Clear Calc 58.6 L eGFR > 60 BUN/Creatinine Ratio 22 H Glucose [address] Glu mg/dL 157 H Hemoglobin A1c 7.1 H Calculated Osmolality 287 Lactic Acid 2.4 H Calcium 8.4 Corrected Calcium 9.3 Phosphorus 3.2 Magnesium 1.5 L Total Bilirubin 0.7 D AST 17 ALT 18 Alkaline Phosphatase 67 D Total Protein 5.2 L Albumin 2.9 L D Globulin 2.3 Albumin/Globulin Ratio 1.3 Triglycerides 77 Cholesterol 76 L LDL Cholesterol, Calc 27 HDL Cholesterol 34 L Cholesterol/HDL Ratio 2.2 L TSH 1.78 D ABG Interpretation ABG results: 05/16/25 05:58 ABG pH 7.40 ABG pCO2 30 L ABG pO2 146 H ABG HCO3 19 L ABG O2 Saturation 100 H ABG Base Excess -5 L Quality Measures Quality Measures VTE prophylaxis Advance care planning discussed with:: patient and child Assessment & Plan Assessment Current Active Medications: Generic Name Dose Route Start Last Admin Trade Name Freq PRN Reason Stop Dose Admin Acetaminophen 650 mg 05/16/25 06:08 Acetaminophen 325 Mg Tablet PO 06/15/25 06:07 Q6H PRN Fever >100.4 Acetaminophen 650 mg 05/16/25 06:08 Acetaminophen 325 Mg Tablet PO 06/15/25 06:07 Q6H PRN PAIN SCALE 1-3 (mild Atorvastatin Calcium 40 mg 05/16/25 21:00 05/16/25 22:01 Atorvastatin Calcium 20 Mg Tablet PO 06/15/25 20:59 40 mg HS ALETA Administration Clopidogrel Bisulfate 75 mg 05/16/25 09:00 05/17/25 08:26 Clopidogrel Bisulfate 75 Mg Tablet PO 06/15/25 08:59 75 mg QDAY ALETA Administration Dextrose 25 ml 05/16/25 06:13 Dextrose 50%-Water Inj 50 Ml Syringe IV 06/15/25 06:12 Q15MIN PRN BG 50-70 responsive npo pt Dextrose 50 ml 05/16/25 06:13 Dextrose 50%-Water Inj 50 Ml Syringe IV 06/15/25 06:12 Q15MIN PRN BG <50 OR BG <70 & pt unresponsive Glucagon 1 mg 05/16/25 06:13 Glucagon Inj 1 Mg Vial IM Q15MIN PRN BG <70, and no IV access Heparin Sodium (Porcine) 5,000 unit 05/16/25 09:00 05/17/25 08:19 Heparin Sod Inj 5000 Unit/Ml Vial SC 05/30/25 08:59 5,000 unit Q12HR ALETA Administration Ceftriaxone Sodium/Dextrose 1 gm in 50 mls @ 100 mls/hr 05/17/25 09:00 05/17/25 08:27 Rocephin/D5w 1gm Iv Premix IV 05/24/25 08:59 100 mls/hr QDAY ALETA Administration Vancomycin HCl 200 mls @ 120 mls/hr 05/17/25 10:00 05/17/25 09:49 Vancomycin/Water 1gm Ivpb IV 05/24/25 09:59 120 mls/hr Q24H ALETA Administration Insulin Degludec 5 unit 05/17/25 21:00 Insulin Degludec 5 Unit/0.05 Ml (Per 5 Units) SC 05/17/25 21:01 X1 ONE Insulin Degludec 5 unit 05/18/25 21:00 Insulin Degludec 5 Unit/0.05 Ml (Per 5 Units) OR 06/17/25 20:59 HS [facility] Insulin Human Lispro 0 unit 05/16/25 07:30 05/17/25 11:53 Insulin Lispro (Admelog) 1 Unit/0.01 Ml Unit SC 06/15/25 07:29 3 unit AC [facility] Administration Protocol Morphine Sulfate 1 mg 05/16/25 06:08 Morphine Sulf Inj 10 Mg/Ml Vial IVP 05/21/25 06:07 Q4HR PRN PAIN SCALE 7-10 (Severe Ondansetron HCl 4 mg 05/16/25 06:08 Ondansetron Inj 2 Mg/Ml Inj 2 Ml IVP 06/15/25 06:07 Q6H PRN NAUSEA OR VOMITING Protocol Oxycodone/Acetaminophen 1 tab 05/16/25 06:08 Oxycodone/Apap 5/325 Tablet PO 05/21/25 06:07 Q6H PRN PAIN SCALE 4-6 (Moderate Pantoprazole Sodium 40 mg 05/16/25 09:00 05/17/25 08:22 Pantoprazole Inj 40 Mg Vial IVP 06/15/25 08:59 40 mg QDAY [facility] Administration Pharmacy Consult 1 each 05/17/25 09:00 Vancomycin Pharmacy To Dose 1 Each Each IV 06/16/25 08:59 QDAY PRN PROTOCOL Sennosides 1 tab 05/16/25 06:08 Senna Tablet PO 06/15/25 06:07 QDAY PRN constipation Protocol Plan 74M with h/o CVA (residual R hemiparesis, aphasia), DM2, HTN, HLD, and recurrent UTIs presenting with acute confusion, slurred speech, fever (101.4?F), vomiting, and shivering; Admitted for sepsis due to likely UTI. #Sepsis, source of infection is urinary tract infection with associated bacteremia # Urinary tract infection, secondary to Proteus #Bacteremia, GNR, speciation pending Likely urinary source with hx UTI's and UA currently showing UTI though; aspiration vs other infection also possible. Initially presented with septic shock (febrile, tachycardic, lactate 7.1, MAP 63 on arrival with hypotension refractory after 500 cc NS). Now with MAP improving after additional IV fluids (63 ->65 -> 89). Was given Zosyn, Vanc intially, discontinued 05/17: Patient blood pressure was soft today, 93/51, given 1 L bolus NS, follow up lactate. Blood culture x1 came back with gram negative rods, the other blood culture is prelim positive for gram positive cocci Patient has a history of bacteremia in 03/2024. Echo done for that showing No evidence of valvular vegetation.Normal LV size and function. Stage I diastolic dysfunction. Estimated EF 55-60% -Rocephin 1 gm IV qd. - Discontinued vancomycin today as blood cultures demonstrating GNR -Trend lactate q4?6 hrs until <2. -Blood & urine cultures; follow up results. -Tylenol PRN fever. -Strict I&O. - ID consulted #Elevated Troponin Likely due to demand ischemia Patient presented without chest pain Blood pressure on admission low with MAP of 63 at lowest (fluid responsive) Patient continues to have soft blood pressure. Trop trend: 0.067 -> 0.080 -> 0.229 -continue to trend #Metabolic encephalopathy Likely secondary to sepsis and metabolic derangements; possible stroke recrudescence vs recurrent stroke. CT Head NEGATIVE Carotid Doppler NEGATIVE MRI brain w/o contrast NEGATIVE (chronic microvascular white matter change) -Neuro checks q4h. -Routine EEG. -Speech rec dysphagia pureed -PT referred -HOB 30? 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 Current deficits appear close to baseline but worsened confusion. -Continue Clopidogrel 75 mg daily. -Follow teleneurology recommendations. #SWEETIE, likely pre-renal secondary to vomiting, decreased PO intake, Improving Patient presented with Cr 1.4, baseline appears to be closer to 1.0 s/p 3 L IV fluids minimal urine output -monitor UOP -Continue IV hydration -Avoid nephrotoxins -Monitor renal panel -Renally dosed medications -Hold any TRAE/ARB/diuretics #Left Lung [place] Potential Mass CXR showed Subtle opacity in the left upper lobe -Ordered CT Chest to exclude parenchymal disease versus mass at the left apex #leukocytosis likely related to methylprednisolone 125 mg given in ED on admission -will follow up with AM labs #Type 2 diabetes mellitus with hyperglycemia Glucose 329 on admission; home metformin stopped by family due to hypoglycemia concerns. -SSI protocol with FS q6h. -Hold metformin (renal function and lactic acidosis). -Target BG 140?180. #Hypothyroidism, unspecified TSH 7.9. Unclear home regimen. -Verify med rec. -Resume levothyroxine if confirmed. #Hypertension Currently hypotensive; holding all antihypertensives. -Hold home meds. -Resume when hemodynamically stable. #Hyperlipidemia, unspecified Stable. -Atorvastatin 40 mg po hs Health Maintenance Disposition: Admit to medicine, stroke/telemetry floor. Feeding: NPO until swallow eval. Thromboprophylaxis: SCD's (low platelets; was on heparin initially) GI prophylaxis: Pantoprazole 40 mg IV daily. Code Status: Full Code (to be reconfirmed with daughter). Patient plan of care was discussed with the attending physician, Dr. Anderson & senior resident Dr. Caitlin Willams MD PGY-1
--- NOTE | 2025-05-17 13:38 | CHAP ---
Patient was visited by the Spiritual Care Volunteer who prayed for them. (Volunteer was in the hospital from 11:30-12:38).
[2025-05-17 14:01] LABS: Lactate (Lactic Acid) 2.5 mMol/L (0.4-2.0)
--- NOTE | 2025-05-17 14:24 | PD.RESPRO ---
Documentation for date of: 05/17/25 Subjective Subjective Interval history: Patient is a 74 year old male with a past medical history of hypertension, hyperlipidemia, history of diabetes mellitus type 2 (denied current medication), and previous CVA, multiple nonhemorrhagic infarcts at occipital lobe, left posterior, and left posterior parietal lobe w/ right sided motor deficits who was admitted for acute metabolic encephalopathy likely secondary to UTI. 05/17/2025: Per family at bedside, no overnight events. Patient was able to sleep well. Patient continues to be frustrated with ending up in the hospital again. No change from neurology stand point, continued to treat underlying condition. Exam Vital Signs Temp Pulse Resp BP Pulse Ox O2 Del Method O2 Flow Rate 96.5 F L 70 15 95/51 L 99 Nasal Cannula 2 05/17/25 12:00 05/17/25 12:00 05/17/25 12:00 05/17/25 12:00 05/17/25 12:00 05/17/25 12:00 05/17/25 12:00 Narrative Exam General Appearance: Alert & Oriented X2 waxes and wanes, well-nourished male who is lying in bed in no acute distress HEENT: Skull symmetrical and atraumatic. Conjunctivae pale pink and moist. Pupils equal, round, reactive to light and accommodation (PERRL). External ear without lesion or discharge. Dry oral mucosa. Cardio: Normal Rate and Rhythm with S1 and S2 heart sounds. No murmurs or extra heart sounds auscultated. No bruits on carotid auscultation. No peripheral edema or cyanosis. Lungs: Symmetric with good expansion. Chest and back non-tender. Breath sounds vesicular without crackles, wheezing or rhonchi Abdomen: Non-tender, Non-distended, Normal Reactive Bowel Sounds Neuro: Yes Alert, Yes cooperative, Yes oriented to person, Yes place, and NO time. Slurred speech. CN grossly intact. Upper motor strength 5/5 and Lower motor strength 2/5. Sensation intact. Objective Labs 05/17/25 05:53 05/17/25 05:53 Labs: Laboratory Results - last 24 hr 05/16/25 05/16/25 05/16/25 13:50 17:01 20:10 WBC RBC Hgb Hct MCV MCH MCHC RDW Std Deviation Plt Count Neut % (Auto) Lymph % (Auto) [place] % (Auto) Eos % (Auto) Baso % (Auto) Neut # (Auto) Lymph # (Auto) [place] # (Auto) Eos # (Auto) Baso # (Auto) Immature Gran # (Auto) Absolute Nucleated RBC Immature Gran % Nucleated RBC % PT INR Sodium Potassium Chloride Carbon Dioxide Anion Gap BUN Creatinine Estim Creat Clear Calc eGFR BUN/Creatinine Ratio Glucose Estimated Ave Glu mg/dL Hemoglobin A1c Calculated Osmolality Lactic Acid 3.4 H 3.1 H 3.1 H Calcium Corrected Calcium Phosphorus Magnesium Total Bilirubin AST ALT Alkaline Phosphatase Total Protein Albumin Globulin Albumin/Globulin Ratio Triglycerides Cholesterol LDL Cholesterol, Calc HDL Cholesterol Cholesterol/HDL Ratio TSH 05/16/25 05/17/25 05/17/25 23:31 05:53 13:45 WBC 18.3 H D RBC 3.51 L Hgb 10.8 L D Hct 30.9 L MCV 88 MCH 30.8 MCHC 35.0 RDW Std Deviation 43.0 Plt Count 116 L D Neut % (Auto) 88 H Lymph % (Auto) 4 L [place] % (Auto) 6 Eos % (Auto) 0 Baso % (Auto) 0 Neut # (Auto) 16.2 H Lymph # (Auto) 0.8 L [place] # (Auto) 1.0 H Eos # (Auto) 0.0 Baso # (Auto) 0.0 Immature Gran # (Auto) 0.27 H Absolute Nucleated RBC 0.00 Immature Gran % 2 H Nucleated RBC % 0 PT 14.0 H INR 1.3 Sodium 140 Potassium 4.8 D Chloride 106 Carbon Dioxide 25.4 Anion Gap 9 BUN 22 Creatinine 1.0 Estim Creat Clear Calc 58.6 L eGFR > 60 BUN/Creatinine Ratio 22 H Glucose [address] Glu mg/dL 157 H Hemoglobin A1c 7.1 H Calculated Osmolality 287 Lactic Acid 2.4 H 2.5 H Calcium 8.4 Corrected Calcium 9.3 Phosphorus 3.2 Magnesium 1.5 L Total Bilirubin 0.7 D AST 17 ALT 18 Alkaline Phosphatase 67 D Total Protein 5.2 L Albumin 2.9 L D Globulin 2.3 Albumin/Globulin Ratio 1.3 Triglycerides 77 Cholesterol 76 L LDL Cholesterol, Calc 27 HDL Cholesterol 34 L Cholesterol/HDL Ratio 2.2 L TSH 1.78 D ABG Interpretation ABG results: 05/16/25 05:58 ABG pH 7.40 ABG pCO2 30 L ABG pO2 146 H ABG HCO3 19 L ABG O2 Saturation 100 H ABG Base Excess -5 L Quality Measures Quality Measures VTE prophylaxis Advance care planning discussed with:: patient Assessment & Plan Assessment Current Active Medications: Generic Name Dose Route Start Last Admin Trade Name Freq PRN Reason Stop Dose Admin Acetaminophen 650 mg 05/16/25 06:08 Acetaminophen 325 Mg Tablet PO 06/15/25 06:07 Q6H PRN Fever >100.4 Acetaminophen 650 mg 05/16/25 06:08 Acetaminophen 325 Mg Tablet PO 06/15/25 06:07 Q6H PRN PAIN SCALE 1-3 (mild Atorvastatin Calcium 40 mg 05/16/25 21:00 05/16/25 22:01 Atorvastatin Calcium 20 Mg Tablet PO 06/15/25 20:59 40 mg HS ALETA Administration Clopidogrel Bisulfate 75 mg 05/16/25 09:00 05/17/25 08:26 Clopidogrel Bisulfate 75 Mg Tablet PO 06/15/25 08:59 75 mg QDAY ALETA Administration Dextrose 25 ml 05/16/25 06:13 Dextrose 50%-Water Inj 50 Ml Syringe IV 06/15/25 06:12 Q15MIN PRN BG 50-70 responsive npo pt Dextrose 50 ml 05/16/25 06:13 Dextrose 50%-Water Inj 50 Ml Syringe IV 06/15/25 06:12 Q15MIN PRN BG <50 OR BG <70 & pt unresponsive Glucagon 1 mg 05/16/25 06:13 Glucagon Inj 1 Mg Vial IM Q15MIN PRN BG <70, and no IV access Heparin Sodium (Porcine) 5,000 unit 05/16/25 09:00 05/17/25 08:19 Heparin Sod Inj 5000 Unit/Ml Vial SC 05/30/25 08:59 5,000 unit Q12HR ALETA Administration Ceftriaxone Sodium/Dextrose 1 gm in 50 mls @ 100 mls/hr 05/17/25 09:00 05/17/25 08:27 Rocephin/D5w 1gm Iv Premix IV 05/24/25 08:59 100 mls/hr QDAY ALETA Administration Vancomycin HCl 200 mls @ 120 mls/hr 05/17/25 10:00 05/17/25 09:49 Vancomycin/Water 1gm Ivpb IV 05/24/25 09:59 120 mls/hr Q24H ALETA Administration Insulin Degludec 5 unit 05/17/25 21:00 Insulin Degludec 5 Unit/0.05 Ml (Per 5 Units) SC 05/17/25 21:01 X1 ONE Insulin Degludec 5 unit 05/18/25 21:00 Insulin Degludec 5 Unit/0.05 Ml (Per 5 Units) IN 06/17/25 20:59 HS [facility] Insulin Human Lispro 0 unit 05/16/25 07:30 05/17/25 11:53 Insulin Lispro (Admelog) 1 Unit/0.01 Ml Unit SC 06/15/25 07:29 3 unit AC [facility] Administration Protocol Morphine Sulfate 1 mg 05/16/25 06:08 Morphine Sulf Inj 10 Mg/Ml Vial IVP 05/21/25 06:07 Q4HR PRN PAIN SCALE 7-10 (Severe Ondansetron HCl 4 mg 05/16/25 06:08 Ondansetron Inj 2 Mg/Ml Inj 2 Ml IVP 06/15/25 06:07 Q6H PRN NAUSEA OR VOMITING Protocol Oxycodone/Acetaminophen 1 tab 05/16/25 06:08 Oxycodone/Apap 5/325 Tablet PO 05/21/25 06:07 Q6H PRN PAIN SCALE 4-6 (Moderate Pantoprazole Sodium 40 mg 05/16/25 09:00 05/17/25 08:22 Pantoprazole Inj 40 Mg Vial IVP 06/15/25 08:59 40 mg QDAY [facility] Administration Pharmacy Consult 1 each 05/17/25 09:00 Vancomycin Pharmacy To Dose 1 Each Each IV 06/16/25 08:59 QDAY PRN PROTOCOL Sennosides 1 tab 05/16/25 06:08 Senna Tablet PO 06/15/25 06:07 QDAY PRN constipation Protocol Plan Patient is a 74 year old male with a past medical history of hypertension, hyperlipidemia, history of diabetes mellity type 2 (denied current medication), and previous CVA, multiple nonhemorrhagic infarcts at occipital lobe, left posterior, and left posterior parietal lobe w/ right sided motor deficits who was admitted for actue metaboic encephaloapthy. #Acute Metabolic Encephaopathy, likely secondary to UTI #UTI #History of nonhemorrhagic infarcts at occipital lobe, left posterior, and left posterior parietal lobe w/ right sided motor deficits (2018) Patient has had gradual decline memory and has required increased assistance with ADL, but recently carlotta has had worseing confusion per family. Acute metabolic encephalpathy likely secondary to UTI and lactic acid with soft blood pressure. past medical history of BPH likely contributing to SWEETIE/UTI. Stroke less likely. No seizure likely activity, no EEG at this time. Given microvascular white matter changes concern for vascular dementia MRI: No acute infarct. Old infarct present. Prominent chronic microvascular white matter changes TSH 7.90 Free T4 1.02 A1c pending (family denied metfomrin use) Plan -No EEG recommended at this time -Continue home medication of Plavix 75 mg once daily and Atorvastatin 40 mg HS (home medication of Simvastatin) -Continue to treat underlying cause/UTI and antibiotics -Replete electrolytes as needed -Consider Midodrine -Follow up with PT #Sepsis, likely secondary to UTI #UTI #SIRs #Lactic Acidosis #SWEETIE #Hyperglycemia #Diabetes Mellitus Type 2 non insulin depedent #Hypothyrodism #HTN #HLD #Normocytic Anemia #troponemia #hyperbilirubinemia #BPH - The patient's plan was discussed with attending Dr. Marilee Arana MD PGY2 Internal Medicine Attending Provider Attestation/Addendum I personally have seen and examined the patient at the bedside and agree with resident's findings, assessment and plan of care. Impression: Altered mental status: Secondary to urosepsis, improving Recent ischemic CVA with vascular dementia presentation now Diabetes mellitus with A1c of 7.1 Hypertension Plan/recommendations Continue with the current antibiotics, follow-up with the urine culture and sensitivity. Encouraged him to participate with the physical therapy.
[2025-05-17 14:31] LABS: Troponin I 0.229 ng/mL (0.0-0.045)
--- NOTE | 2025-05-17 14:45 | PC.NURSE ---
Dr. Peres made aware of patients critical troponin level of 0.229 as reported per Ita in Lab. No new orders received.
[2025-05-17 16:58] LABS: Reflex Lactate? Y
[2025-05-17] MEDS: RINGERS LACTATED 1000 ML 500 ML 999 ML IV (17:10)
[2025-05-17 18:21] LABS: Lactic Acid, 3 HR 2.3 mMol/L (0.4-2.0)
[2025-05-17 19:20] LABS: Troponin I 0.215 ng/mL (0.0-0.045)
[2025-05-17] MEDS: ATORVASTATIN CALCIUM 20 MG TABLET 40 MG PO (21:04)
[2025-05-17 21:46] LABS: Lactate (Lactic Acid) 1.9 mMol/L (0.4-2.0)
[2025-05-18] VITALS (9 sets, daily range): BP systolic 121–154; BP diastolic 69–79; PULSE 67–96; RESP 15–99; TEMP 36.8–37.6; O2SAT 98–100; BMI 22.4
[2025-05-18 06:30] LABS: Basophils # (Auto) 0.0 Thou/mm3 (0.0-0.2); Basophils % (Auto) 0 % (0-2.5); Eosinophils # (Auto) 0.0 Thou/mm3 (0.0-0.5); Eosinophils % (Auto) 0 % (0-10); Hematocrit 33.0 % (41.0-53.0); Hemoglobin 11.3 g/dL (13.5-16.0); Immature Granulocytes Auto 0.06 Thou/mm3 (0.00-0.00); Lymphocytes # (Auto) 0.5 Thou/mm3 (1.0-4.8); Lymphocytes % (Auto) 6 % (10-50); Mean Corpuscular HGB Conc 34.2 g/dl (31.0-37.0); Mean Corpuscular Hemoglobin 30.5 pg (25.0-35.0); Mean Corpuscular Volume 89 fL (80-100); Monocytes # (Auto) 0.4 Thou/mm3 (0.0-0.8); Monocytes % (Auto) 4 % (0-12); Neutrophils # (Auto) 8.4 Thou/mm3 (1.8-7.7); Neutrophils % (Auto) 90 % (37-80); Nucleated Red Blood Cell # 0.00 Thou/mm3 (0.00-0.00); Nucleated Red Blood Cell % 0 /100 WBC (0); Platelet Count 140 Thou/mm3 (140-440); RDW Standard Deviation 43.9 fL (35.1-43.9); Red Blood Count 3.70 Miln/mm3 (4.50-5.90); White Blood Count 9.4 Thou/mm3 (3.8-10.6)
[2025-05-18 06:47] LABS: Alanine Aminotransferase 16 U/L (10-49); Albumin, Serum 3.1 gm/dL (3.4-4.8); Albumin/Globulin Ratio 1.1 (1.2-2.2); Alkaline Phosphatase 87 U/L (46-116); Anion Gap 9 (7-16); Aspartate Amino Transferase 18 U/L (0-34); BUN/Creatinine Ratio 23 Ratio (12-20); Bilirubin,Total 0.4 mg/dL (0.3-1.2); Blood Urea Nitrogen 18 mg/dL (9-23); Calcium 8.5 mg/dL (8.3-10.6); Calcium (Corrected) 9.2 mg/dL (8.5-10.1); Carbon Dioxide 26.4 mMol/L (20.0-31.0); Chloride 106 mMol/L (98-107); Creatinine (Component) 0.8 mg/dL (0.6-1.3); Estimated Creatinine Clearance 70.9 mL/min (>60); Globulin 2.7 gm/dL (2.3-3.5); Glucose 129 mg/dL (74-106); Magnesium 2.0 mg/dL (1.6-2.6); Osmolality,Calculated 285 (275-295); Phosphorous 1.6 mg/dL (2.4-5.1); Potassium 4.4 mMol/L (3.4-5.1); Sodium 141 mMol/L (136-145); Total Protein 5.8 gm/dL (5.7-8.2); eGFR > 60 See Note
[2025-05-18] MEDS: CLOPIDOGREL BISULFATE 75 MG TABLET PO (08:23)
[2025-05-18] MEDS: cefTRIAXone/D5w 1gm IV premix 1 GM/50 ML BAG IV ×2 (08:23→09:07)
--- NOTE | 2025-05-18 09:29 | ESPR_ITS ---
Subjective Subjective Interval history: asked to se by dr krishna. on rocephin and vanco. cx neg bc with gnr. single bc. urine with rome S proteus. need renal u/s before releas on po meds, bactrim thru wed ok unless gnr iin bc is different, then thange rx to adedress urine and bc but urine likely the source Exam Vital Signs Temp Pulse Resp BP Pulse Ox O2 Del Method O2 Flow Rate 99.6 F 76 16 133/74 H 99 Room Air 2 05/18/25 04:00 05/18/25 08:00 05/18/25 07:28 05/18/25 04:00 05/18/25 04:00 05/18/25 04:00 05/17/25 12:00 Narrative Exam uti. with bacteremia altered mentation changed to po bactrim ds bid for 5df more. f/u with outpt rpimary. no need to see id.. no labs need on po rx. iis a full code so you my wan to have a goals of care discussion. his bday is today. Objective - Internal Medicine Labs 05/18/25 05:39 05/18/25 05:39 Labs: Laboratory Results - last 24 hr 05/17/25 05/17/25 05/17/25 13:45 17:48 21:31 WBC RBC Hgb Hct MCV MCH MCHC RDW Std Deviation Plt Count Neut % (Auto) Lymph % (Auto) [place] % (Auto) Eos % (Auto) Baso % (Auto) Neut # (Auto) Lymph # (Auto) [place] # (Auto) Eos # (Auto) Baso # (Auto) Immature Gran # (Auto) Absolute Nucleated RBC Immature Gran % Nucleated RBC % Sodium Potassium Chloride Carbon Dioxide Anion Gap BUN Creatinine Estim Creat Clear Calc eGFR BUN/Creatinine Ratio Glucose Calculated Osmolality Lactic Acid 2.5 H 2.3 H 1.9 Calcium Corrected Calcium Phosphorus Magnesium Total Bilirubin AST ALT Alkaline Phosphatase Troponin I 0.229 H* 0.215 H* Total Protein Albumin Globulin Albumin/Globulin Ratio 05/18/25 05:39 WBC 9.4 D RBC 3.70 L Hgb 11.3 L Hct 33.0 L MCV 89 MCH 30.5 MCHC 34.2 RDW Std Deviation 43.9 Plt Count 140 D Neut % (Auto) 90 H Lymph % (Auto) 6 L [place] % (Auto) 4 Eos % (Auto) 0 Baso % (Auto) 0 Neut # (Auto) 8.4 H Lymph # (Auto) 0.5 L [place] # (Auto) 0.4 Eos # (Auto) 0.0 Baso # (Auto) 0.0 Immature Gran # (Auto) 0.06 H Absolute Nucleated RBC 0.00 Immature Gran % 1 H Nucleated RBC % 0 Sodium 141 Potassium 4.4 Chloride 106 Carbon Dioxide 26.4 Anion Gap 9 BUN 18 Creatinine 0.8 Estim Creat Clear Calc 70.9 eGFR > 60 BUN/Creatinine Ratio 23 H Glucose 129 H D Calculated Osmolality 285 Lactic Acid Calcium 8.5 Corrected Calcium 9.2 Phosphorus 1.6 L Magnesium 2.0 Total Bilirubin 0.4 AST 18 ALT 16 Alkaline Phosphatase 87 D Troponin I Total Protein 5.8 Albumin 3.1 L Globulin 2.7 Albumin/Globulin Ratio 1.1 L ABG Interpretation ABG results: 05/16/25 05:58 ABG pH 7.40 ABG pCO2 30 L ABG pO2 146 H ABG HCO3 19 L ABG O2 Saturation 100 H ABG Base Excess -5 L Assessment & Plan A&P Narrative acute illness uti hypothryoid hld changed iv meds to po. ordered renal u/s. will see again prn Time Spent With Patient Time: Total time spent is greater than 50% in coordination of care (as documented) at patient's floor/unit and/or counseling patient:
--- NOTE | 2025-05-18 09:31 | XR_ITS ---
Examination: Retroperitoneal ultrasound, complete Technique: Multiple high resolution grayscale images of the retroperitoneum obtained, including kidneys and bladder. Exam date and time:May 18 2025,, 1642 hours INDICATIONS: Urinary tract infections today finding pain FINDINGS: Right kidney 9.8 cm renal cortex 1.0 cm Left kidney 10.9 cm renal cortex 1.1 cm [id number] renal parenchymal scar formation. Contracted urinary bladder No bladder mass Prostate 3.0 x 3.8 x 4.8 cm volume 28 cc no prostate nodules IMPRESSION: Small kidneys with bilateral renal cortical thinning. Bilateral [id number] renal parenchymal scar formation No hydronephrosis
--- NOTE | 2025-05-18 11:27 | CHAP ---
Patient was visited by the Spiritual Care Volunteer who prayed for them. (Volunteer was in the hospital from 09:00-11:27)
--- NOTE | 2025-05-18 11:38 | ESPR_ITS ---
<Statement entered by Wesley Peres MD - 05/18/25 17:09> I have reviewed the note and agree with the resident's assessment & plan with exceptions as below. I have personally reviewed labs, imaging, home meds/prior records, examined the patient, formulated and discussed management plan with the IM team. Patient examined at bedside today. No acute overnight events. Infectious disease consulted today, appreciate recommendations. Spoke with microbiology who reports that patient does not have GPC in blood cultures, however only GNR. Will continue with current antibiotic regiment, discontinue vancomycin and also cancel echocardiogram. Will see how patient improves and will continue current antibiotic regiment. Patient also found to have pansensitive Proteus, this is the likely bug that patient has bacteremia with, however will wait for final sensitivities. Repeat hematology and chemistry in the a.m. Anticipate discharge within the next 24 to 48 hours depending on blood culture sensitivities. Resumed home alpha-vish today. Wesley Peres, PGY-2 Internal Medicine Documentation for date of: 05/18/25 Subjective Subjective Interval history: No acute events overnight. Patient seen and examined at bedside with daughter. Vitals and labs reviewed. Patient says he is doing well today, no complaints, wished him happy birthday. Patinet talking more today, has more energy. Patient denies fever, chest pain, shortness of breath, abdominal pain Exam Vital Signs Temp Pulse Resp BP Pulse Ox O2 Del Method O2 Flow Rate 98.6 F 73 19 154/79 H 100 Room Air 2 05/18/25 08:00 05/18/25 08:00 05/18/25 08:00 05/18/25 08:00 05/18/25 08:00 05/18/25 08:00 05/17/25 12:00 Narrative Exam General: No acute distress; A&Ox3. Skin: Warm, dry, intact, no obvious rash. HENT: NCAT, EOMI, not icteric. External ears normal. No rhinorrhea. Dry mucous membranes Cardiovascular: Regular rate and rhythm, no murmur, +S1/S2. Respiratory: Lungs normal sounding, CTAB GI: Soft, nontender, non-distended. No guarding or rebound tenderness. Extremities: no edema, no cyanosis, no clubbing. Extremity pulses present Neuro: Right sided hemiparesis, mild R facial droop from previous stroke; Left sided strength well intact; sensation intact; aphasic Psychiatric: Cooperative, appropriate affect. Objective Labs 05/18/25 05:39 05/18/25 05:39 Labs: Laboratory Results - last 24 hr 05/17/25 05/17/25 05/17/25 13:45 17:48 21:31 WBC RBC Hgb Hct MCV MCH MCHC RDW Std Deviation Plt Count Neut % (Auto) Lymph % (Auto) [place] % (Auto) Eos % (Auto) Baso % (Auto) Neut # (Auto) Lymph # (Auto) [place] # (Auto) Eos # (Auto) Baso # (Auto) Immature Gran # (Auto) Absolute Nucleated RBC Immature Gran % Nucleated RBC % Sodium Potassium Chloride Carbon Dioxide Anion Gap BUN Creatinine Estim Creat Clear Calc eGFR BUN/Creatinine Ratio Glucose Calculated Osmolality Lactic Acid 2.5 H 2.3 H 1.9 Calcium Corrected Calcium Phosphorus Magnesium Total Bilirubin AST ALT Alkaline Phosphatase Troponin I 0.229 H* 0.215 H* Total Protein Albumin Globulin Albumin/Globulin Ratio 05/18/25 05:39 WBC 9.4 D RBC 3.70 L Hgb 11.3 L Hct 33.0 L MCV 89 MCH 30.5 MCHC 34.2 RDW Std Deviation 43.9 Plt Count 140 D Neut % (Auto) 90 H Lymph % (Auto) 6 L [place] % (Auto) 4 Eos % (Auto) 0 Baso % (Auto) 0 Neut # (Auto) 8.4 H Lymph # (Auto) 0.5 L [place] # (Auto) 0.4 Eos # (Auto) 0.0 Baso # (Auto) 0.0 Immature Gran # (Auto) 0.06 H Absolute Nucleated RBC 0.00 Immature Gran % 1 H Nucleated RBC % 0 Sodium 141 Potassium 4.4 Chloride 106 Carbon Dioxide 26.4 Anion Gap 9 BUN 18 Creatinine 0.8 Estim Creat Clear Calc 70.9 eGFR > 60 BUN/Creatinine Ratio 23 H Glucose 129 H D Calculated Osmolality 285 Lactic Acid Calcium 8.5 Corrected Calcium 9.2 Phosphorus 1.6 L Magnesium 2.0 Total Bilirubin 0.4 AST 18 ALT 16 Alkaline Phosphatase 87 D Troponin I Total Protein 5.8 Albumin 3.1 L Globulin 2.7 Albumin/Globulin Ratio 1.1 L ABG Interpretation ABG results: 05/16/25 05:58 ABG pH 7.40 ABG pCO2 30 L ABG pO2 146 H ABG HCO3 19 L ABG O2 Saturation 100 H ABG Base Excess -5 L Quality Measures Quality Measures VTE prophylaxis Advance care planning discussed with:: patient and child Assessment & Plan Assessment Current Active Medications: Generic Name Dose Route Start Last Admin Trade Name Freq PRN Reason Stop Dose Admin Acetaminophen 650 mg 05/16/25 06:08 Acetaminophen 325 Mg Tablet PO 06/15/25 06:07 Q6H PRN Fever >100.4 Acetaminophen 650 mg 05/16/25 06:08 Acetaminophen 325 Mg Tablet PO 06/15/25 06:07 Q6H PRN PAIN SCALE 1-3 (mild Atorvastatin Calcium 40 mg 05/16/25 21:00 05/17/25 21:04 Atorvastatin Calcium 20 Mg Tablet PO 06/15/25 20:59 40 mg HS ALETA Administration Clopidogrel Bisulfate 75 mg 05/16/25 09:00 05/18/25 08:23 Clopidogrel Bisulfate 75 Mg Tablet PO 06/15/25 08:59 75 mg QDAY ALETA Administration Dextrose 25 ml 05/16/25 06:13 Dextrose 50%-Water Inj 50 Ml Syringe IV 06/15/25 06:12 Q15MIN PRN BG 50-70 responsive npo pt Dextrose 50 ml 05/16/25 06:13 Dextrose 50%-Water Inj 50 Ml Syringe IV 06/15/25 06:12 Q15MIN PRN BG <50 OR BG <70 & pt unresponsive Doxazosin Mesylate 4 mg 05/18/25 21:00 Doxazosin Mesylate 2 Mg Tablet PO 06/17/25 20:59 HS ALETA Glucagon 1 mg 05/16/25 06:13 Glucagon Inj 1 Mg Vial IM Q15MIN PRN BG <70, and no IV access Heparin Sodium (Porcine) 5,000 unit 05/16/25 09:00 05/17/25 08:19 Heparin Sod Inj 5000 Unit/Ml Vial SC 05/30/25 08:59 5,000 unit Q12HR ALETA Administration Insulin Degludec 5 unit 05/18/25 21:00 Insulin Degludec 5 Unit/0.05 Ml (Per 5 Units) SC 06/17/25 20:59 HS ALETA Insulin Human Lispro 0 unit 05/16/25 07:30 05/18/25 07:26 Insulin Lispro (Admelog) 1 Unit/0.01 Ml Unit SC 06/15/25 07:29 Not Given AC [facility] Protocol Morphine Sulfate 1 mg 05/16/25 06:08 Morphine Sulf Inj 10 Mg/Ml Vial IVP 05/21/25 06:07 Q4HR PRN PAIN SCALE 7-10 (Severe Ondansetron HCl 4 mg 05/16/25 06:08 Ondansetron Inj 2 Mg/Ml Inj 2 Ml IVP 06/15/25 06:07 Q6H PRN NAUSEA OR VOMITING Protocol Oxycodone/Acetaminophen 1 tab 05/16/25 06:08 Oxycodone/Apap 5/325 Tablet PO 05/21/25 06:07 Q6H PRN PAIN SCALE 4-6 (Moderate Sennosides 1 tab 05/16/25 06:08 Senna Tablet PO 06/15/25 06:07 QDAY PRN constipation Protocol Trimethoprim/Sulfamethoxazole 1 tab 05/18/25 21:00 Trimethoprim/Sulfa 160/800 Ds Tablet PO 05/23/25 12:00 BID [facility] Plan 74M with h/o CVA (residual R hemiparesis, aphasia), DM2, HTN, HLD, and recurrent UTIs presenting with acute confusion, slurred speech, fever (101.4?F), vomiting, and shivering; Admitted for sepsis due to likely UTI. #Sepsis secondary to UTI and bacteremia, Proteus is likely causative organism #Acute UTI secondary to pansensitive Proteus #Bacteremia, GNR thus far, awaiting speciation Likely urinary source with hx UTI's and UA currently showing UTI though; aspiration vs other infection also possible. Initially presented with septic shock (febrile, tachycardic, lactate 7.1, MAP 63 on arrival with hypotension refractory after 500 cc NS). Now with MAP improving after additional IV fluids (63 ->65 -> 89). Was given Zosyn, Vanc intially, discontinued 05/17: Patient blood pressure was soft today, 93/51, given 1 L bolus NS, follow up lactate. Blood culture x1 came back with gram negative rods, the other blood culture is prelim positive for gram positive cocci Patient has a history of bacteremia in 03/2024. Echo done for that showing No evidence of valvular vegetation.Normal LV size and function. Stage I diastolic dysfunction. Estimated EF 55-60% - ID consulted, recommended Bactrim 1 tab po bid, renal US f/u, no need to repeat blood cultures. - Discontinued Rocephin and Vancomycin -Trend lactate q4?6 hrs until <2. -Blood & urine cultures; follow up for final results. -Tylenol PRN fever. -Strict I&O. -Ordered echo, f/u #Elevated Troponin Likely due to demand ischemia Patient presented without chest pain Blood pressure on admission low with MAP of 63 at lowest (fluid responsive) Patient continues to have soft blood pressure. Trop trend: 0.067 -> 0.080 -> 0.229 -> 0.215 05/18 -will monitor for chest pain, acute changes #Metabolic encephalopathy Likely secondary to sepsis and metabolic derangements; possible stroke recrudescence vs recurrent stroke. CT Head NEGATIVE Carotid Doppler NEGATIVE MRI brain w/o contrast NEGATIVE (chronic microvascular white matter change) -Neuro checks q4h. -Routine EEG. -Speech rec dysphagia pureed -PT referred -HOB 30? 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 Current deficits appear close to baseline but worsened confusion. -Continue Clopidogrel 75 mg daily. -Follow teleneurology recommendations. #SWEETIE, likely pre-renal secondary to vomiting, decreased PO intake, Improving Patient presented with Cr 1.4, baseline appears to be closer to 1.0 s/p 3 L IV fluids minimal urine output -monitor UOP -Continue IV hydration -Avoid nephrotoxins -Monitor renal panel -Renally dosed medications -Hold any TRAE/ARB/diuretics #Left Lung [place] Potential Mass CXR showed Subtle opacity in the left upper lobe -Ordered CT Chest to exclude parenchymal disease versus mass at the left apex #leukocytosis likely related to methylprednisolone 125 mg given in ED on admission -will follow up with AM labs #Type 2 diabetes mellitus with hyperglycemia Glucose 329 on admission; home metformin stopped by family due to hypoglycemia concerns. -SSI protocol with FS q6h. -Hold metformin (renal function and lactic acidosis). -Target BG 140?180. #Hypothyroidism, unspecified TSH 7.9. Unclear home regimen. -Verify med rec. -Resume levothyroxine if confirmed. #Hypertension Currently hypotensive; holding all antihypertensives. -Hold home meds. -Resume when hemodynamically stable. #Hyperlipidemia, unspecified Stable. -Atorvastatin 40 mg po hs Health Maintenance Disposition: Admit to medicine, stroke/telemetry floor. Feeding: NPO until swallow eval. Thromboprophylaxis: SCD's (low platelets; was on heparin initially) GI prophylaxis: Pantoprazole 40 mg IV daily. Code Status: Full Code (to be reconfirmed with daughter). Patient plan of care was discussed with the attending physician, Dr. Anderson & senior resident Dr. Larisa Willams MD PGY-1 Attending Provider Attestation/Addendum I have discussed and was present for the essential components of the history, physical examination, diagnosis, and treatment plan with the resident. I agree with the patient's care as documented by the resident and amended herein by me. Shaheen Anderson, DO. Although this document has been carefully reviewed, there may still be some phonetic and other typographical errors. These errors are purely grammatical due to imperfections in the software program and should not be construed in any way to compromise the substance of the patient's medical care during this visit.
--- NOTE | 2025-05-18 11:40 | PD.ADDPROG ---
Addendum Progress Note Addendum Date of report being addended: 05/18/25 Narrative: pt is back to [facility] per daughter. we usually do not need to repeat the gnr bc as they clear fast in most cases. if problem recurs then we can w/u for BE
[2025-05-18] MEDS: INSULIN LISPRO (AdmeLOG) 1 UNIT/0.01 ML UNIT SC ×2 (11:41→17:17)
--- NOTE | 2025-05-18 16:01 | PC.SS ---
Per afternoon rounding notes: pt has a UTI, but possible d/c tomorrow. Pt is on antibiotics.
[2025-05-18] MEDS: INSULIN DEGLUDEC 5 UNIT/0.05 ML (PER 5 UNITS) SC (20:52)
[2025-05-18] MEDS: TRIMETHOPRIM/SULFA 160/800 DS TABLET 1 TAB PO (20:52)
[2025-05-18] MEDS: ATORVASTATIN CALCIUM 20 MG TABLET 40 MG PO (20:52)
[2025-05-18] MEDS: DOXAZOSIN MESYLATE 2 MG TABLET 4 MG PO (20:54)
--- NOTE | 2025-05-18 23:12 | ESPR_ITS ---
Documentation for date of: 05/18/25 Exam - Neurology Vital Signs Temp Pulse Resp BP Pulse Ox O2 Del Method O2 Flow Rate 98.6 F 85 18 147/76 H 98 Room Air 2 05/18/25 20:00 05/18/25 20:54 05/18/25 20:00 05/18/25 20:54 05/18/25 20:00 05/18/25 20:00 05/18/25 09:00 Objective Labs 05/18/25 05:39 05/18/25 05:39 Labs: Laboratory Results - last 24 hr 05/18/25 05:39 WBC 9.4 D RBC 3.70 L Hgb 11.3 L Hct 33.0 L MCV 89 MCH 30.5 MCHC 34.2 RDW Std Deviation 43.9 Plt Count 140 D Neut % (Auto) 90 H Lymph % (Auto) 6 L [place] % (Auto) 4 Eos % (Auto) 0 Baso % (Auto) 0 Neut # (Auto) 8.4 H Lymph # (Auto) 0.5 L [place] # (Auto) 0.4 Eos # (Auto) 0.0 Baso # (Auto) 0.0 Immature Gran # (Auto) 0.06 H Absolute Nucleated RBC 0.00 Immature Gran % 1 H Nucleated RBC % 0 Sodium 141 Potassium 4.4 Chloride 106 Carbon Dioxide 26.4 Anion Gap 9 BUN 18 Creatinine 0.8 Estim Creat Clear Calc 70.9 eGFR > 60 BUN/Creatinine Ratio 23 H Glucose 129 H D Calculated Osmolality 285 Calcium 8.5 Corrected Calcium 9.2 Phosphorus 1.6 L Magnesium 2.0 Total Bilirubin 0.4 AST 18 ALT 16 Alkaline Phosphatase 87 D Total Protein 5.8 Albumin 3.1 L Globulin 2.7 Albumin/Globulin Ratio 1.1 L ABG Interpretation ABG results: 05/16/25 05:58 ABG pH 7.40 ABG pCO2 30 L ABG pO2 146 H ABG HCO3 19 L ABG O2 Saturation 100 H ABG Base Excess -5 L
[2025-05-19] VITALS (8 sets, daily range): BP systolic 94–123; BP diastolic 52–66; PULSE 76–780; RESP 13–98; TEMP 36.6–36.8; O2SAT 94–99; BMI 22.0
[2025-05-19 06:22] LABS: Basophils # (Auto) 0.0 Thou/mm3 (0.0-0.2); Basophils % (Auto) 0 % (0-2.5); Eosinophils # (Auto) 0.1 Thou/mm3 (0.0-0.5); Eosinophils % (Auto) 1 % (0-10); Hematocrit 30.8 % (41.0-53.0); Hemoglobin 10.5 g/dL (13.5-16.0); Immature Granulocytes Auto 0.03 Thou/mm3 (0.00-0.00); Lymphocytes # (Auto) 0.8 Thou/mm3 (1.0-4.8); Lymphocytes % (Auto) 15 % (10-50); Mean Corpuscular HGB Conc 34.1 g/dl (31.0-37.0); Mean Corpuscular Hemoglobin 30.0 pg (25.0-35.0); Mean Corpuscular Volume 88 fL (80-100); Monocytes # (Auto) 0.3 Thou/mm3 (0.0-0.8); Monocytes % (Auto) 6 % (0-12); Neutrophils # (Auto) 4.4 Thou/mm3 (1.8-7.7); Neutrophils % (Auto) 78 % (37-80); Nucleated Red Blood Cell # 0.00 Thou/mm3 (0.00-0.00); Nucleated Red Blood Cell % 0 /100 WBC (0); Platelet Count 133 Thou/mm3 (140-440); RDW Standard Deviation 43.8 fL (35.1-43.9); Red Blood Count 3.50 Miln/mm3 (4.50-5.90); White Blood Count 5.6 Thou/mm3 (3.8-10.6)
[2025-05-19 07:03] LABS: Alanine Aminotransferase 25 U/L (10-49); Albumin, Serum 3.0 gm/dL (3.4-4.8); Albumin/Globulin Ratio 1.2 (1.2-2.2); Alkaline Phosphatase 105 U/L (46-116); Anion Gap 8 (7-16); Aspartate Amino Transferase 28 U/L (0-34); BUN/Creatinine Ratio 17 Ratio (12-20); Bilirubin,Total 0.3 mg/dL (0.3-1.2); Blood Urea Nitrogen 12 mg/dL (9-23); Calcium 8.1 mg/dL (8.3-10.6); Calcium (Corrected) 8.9 mg/dL (8.5-10.1); Carbon Dioxide 27.8 mMol/L (20.0-31.0); Chloride 106 mMol/L (98-107); Creatinine (Component) 0.7 mg/dL (0.6-1.3); Estimated Creatinine Clearance 81.0 mL/min (>60); Globulin 2.6 gm/dL (2.3-3.5); Glucose 153 mg/dL (74-106); Magnesium 1.8 mg/dL (1.6-2.6); Osmolality,Calculated 285 (275-295); Phosphorous 1.4 mg/dL (2.4-5.1); Potassium 4.1 mMol/L (3.4-5.1); Sodium 142 mMol/L (136-145); Total Protein 5.6 gm/dL (5.7-8.2); eGFR > 60 See Note
[2025-05-19] MEDS: TRIMETHOPRIM/SULFA 160/800 DS TABLET 1 TAB PO ×2 (08:27→16:30)
[2025-05-19] MEDS: CLOPIDOGREL BISULFATE 75 MG TABLET PO (08:27)
[2025-05-19 10:00] LABS: Vancomycin,Trough 4.3 mcg/mL (5.0-10.0)
[2025-05-19] MEDS: POTASSIUM PHOS 22.5 MMOL in SODIUM CHLORIDE 0.9% 500 ML 500 ML 82.778 MMOL IV (10:00)
--- NOTE | 2025-05-19 12:37 | PC.SS ---
Addendum entered by Martha Weber 05/19/25 15:44: [id number]-Pt will d/c with Home Health in place. [facility] will process referral Original Note: [id number] emailed [facility] to inform them that of the need of home health/PT.
--- NOTE | 2025-05-19 14:17 | PD.RESDS ---
Planned Discharge Date 05/19/25 DS: Providers Provider Date of admission: 05/16/25 06:08 Primary care physician: Ruiz Murphy MD Admitting Provider: Jose Sarkar MD Attending Provider on Admission: Ruben Anderson DO Consults: 05/16/25 04:39 Consult to Neurology / Tele-Neurology Routine Comment: Consulting Provider: [facility] 05/16/25 06:08 Consult to Neurology / Tele-Neurology Routine Comment: Consulting Provider: Bharath Hunt PT [Referral Physical Therapy] Routine Comment: Physician Instructions: Referral Speech Therapy Routine Comment: 05/17/25 16:55 Consult to Infectious Diseases Routine Comment: bacteremia Consulting Provider: Edgardo Ashraf Attending Provider on DC: Ruben Anderson DO Discharging Provider: Ruben Anderson DO DS: Diagnosis Problem List Completed Was Problem List Reviewed/Reconciled?: Yes Hospital Course Hospital Course Hospital course: 74-year-old male with a history of CVA with residual right-sided hemiparesis, type 2 diabetes, hypertension, and hyperlipidemia who was admitted to [facility] on 05/16/2025 for Acute encephalopathy, stroke rule out, and sepsis secondary to Proteus Mirabilis bacteremia. Patient presented to the ED with a temperature of 101.4?F, BP 67/47, HR 131, saturating well on room air. Patient was worked up and found to have and hyperglycemic glucose of 329, Lactic acid elevated at 7.1. Teleneurology consulted: impression was toxic-metabolic encephalopathy vs stroke recrudescence vs recurrent stroke. Not a candidate for tPA due to last known well >4.[address] head showed chronic left parietal infarct without acute hemorrhage. NIHSS = 9. Recommendations at the time included MRI brain, carotid duplex, EEG, continue Plavix, IV fluids, neuro checks q4h, and bedside swallow evaluation. Patient was given IV fluids, Rocephin, antipyretics and Zosyn. Medicine was consulted patient admitted to the floors. While on the floors, patient had carotid duplex ultrasound bilaterally showed 0 to 10% stenosis in both carotid arteries. Patient had MRI stroke protocol which showed no acute hemorrhage, ischemia, midline shift or mass effect, and patient was resumed on his home Plavix and statin. Patient also had UTI which was found to be Proteus. Blood cultures had been done and showed Proteus 1 out of 2 bottles that was pansensitive. Infectious disease was consulted for further recommendations in which patient was then put on Bactrim. Patient continued to improve and was cleared for discharge with oral antibiotics (Bactrim to finish on May 23) per infectious disease recommendations. Patient was also seen by physical therapy recommended SNF at the time, however patient's family wanted home health PT. Patient discharged with the following instructions listed below. 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 Justin Peres, PGY-2 Time Spent with Patient Time attestation: Total time spent providing and/or coordinating discharge services: Time spent: Greater than 30 minutes Exam Vital Signs Temp Pulse Resp BP Pulse Ox O2 Del Method O2 Flow Rate 98.1 F 86 16 94/53 L 96 Room Air 2 05/19/25 08:00 05/19/25 12:00 05/19/25 09:12 05/19/25 08:00 05/19/25 08:32 05/19/25 08:00 05/19/25 09:12 Narrative Exam General: No acute distress; A&Ox3. Skin: Warm, dry, intact, no obvious rash. HENT: NCAT, EOMI, not icteric. External ears normal. No rhinorrhea. Dry mucous membranes Cardiovascular: Regular rate and rhythm, no murmur, +S1/S2. Respiratory: Lungs normal sounding, CTAB GI: Soft, nontender, non-distended. No guarding or rebound tenderness. Extremities: no edema, no cyanosis, no clubbing. Extremity pulses present Neuro: Right sided hemiparesis, mild R facial droop from previous stroke; Left sided strength well intact; sensation intact; aphasic Psychiatric: Cooperative, appropriate affect. Discharge Plan Plan Patient Disposition: Home w/HOME HEALTH Patient condition on transfer: Stable Care Plan Goals: Discharge instructions Follow-up with your PCP within 1 week Continue with Home health PT Finish up your Antibiotic, Bactrim, as prescribed Take your medicines as prescribed Return to ED if your symptoms worsen or return Prescriptions/Referrals Prescriptions/Med Rec: New sulfamethoxazole-trimethoprim [Bactrim DS] 800-160 mg tablet 1 tab PO Q12H 4 Days Qty: 8 0RF Rx Instructions: Take one tablet by mouth twice a day Continued doxazosin 4 mg Tablet 4 mg PO QDAY metformin 1,000 mg Tablet 500 mg PO QDAY clopidogrel [Plavix] 75 mg Tablet 75 mg PO QDAY Qty: 0 0RF simvastatin 20 mg Tablet 40 mg PO HS Qty: 0 0RF levothyroxine 88 mcg tablet 88 mcg PO QDAY Patient Comments: TAKE 1 TABLET BY MOUTH ONCE DAILY IN THE MORNING ON AN EMPTY STOMACH FOR 90 DAYS sennosides [senna] 8.6 mg tablet 8.6 mg PO QDAY PRN (Reason: constipation) Qty: 15 0RF Discontinued losartan 50 mg Tablet 50 mg PO QDAY amoxicillin-pot clavulanate [Augmentin] 500-125 mg tablet 1 tab PO BID Qty: 12 0RF Referrals: Ruiz Murphy MD [Primary Care Provider] - Patient/Caregiver Discharge Instructions Discharge Activity: activity as tolerated Education Materials: ED Bacteremia, Suspected (Adult) Print Language: [place]araguan Stand Alone Forms: [employer] Award Info., Patient Portal Info Letter Discharge Order Discharge Orders: Discharge (Routine); Ordered 05/19/25 Ordered By: Wesley Peres Quality Discharge Quality Measures VTE prophylaxis Attestestation Attestation I have discussed and was present for the essential components of the discharge history, physical examination, diagnosis, and discharge treatment plan with the resident. I agree with the patient's discharge care as documented by the resident and amended herein by me. Shaheen Anderson DO. The patients family understood all discharge instructions, all questions were answered satisfactorily. The patients family was instructed to return to the Emergency Department is symptoms worsened or persisted. Patient was stable, afebrile and tolerating p.o. intake at time of discharge home with home health with physical therapy. Patient will be discharged with a short course of Bactrim per infectious disease recommendations. All questions were answered satisfactorily from the family. Although this document has been carefully reviewed, there may still be some phonetic and other typographical errors. These errors are purely grammatical due to imperfections in the software program and should not be construed in any way to compromise the substance of the patient's medical care during this visit.
--- NOTE | 2025-05-20 08:06 | PC.CM ---
Home health referrals sent out via [employer], pending responses at this time.
--- NOTE | 2025-05-21 11:54 | PC.CC ---
[facility] accepted and booked, soc 05/21
--- NOTE | 2025-05-22 08:17 | ESCONSULT_ITS ---
RE: MAT HAYWOOD : 1950 DATE OF CONSULTATION: 05/18/2025 REFERRING PHYSICIAN: Dr. Sarkar. REASON FOR CONSULTATION: Apparent urinary tract infection with bacteremia. HISTORY OF PRESENT ILLNESS: The patient may have two positive blood cultures, gram-negative rods from 05/16/2025. One of them may have also had a contaminant. He is doing better on his current therapy. He is currently on cefepime and possibly another medication for an unknown period of time, but the single positive blood it is likely a contaminant. He is doing better without specific therapy, it seems. Unless it turns out to be a Staph aureus, then we would probably not ignore it. He does not have a central line or other device in place. He appears to have some dementia. His daughter who lives with him added to his list of health problems today. PAST SURGICAL HISTORY: He has had no significant surgery in the past and had a biopsy of his right neck. ALLERGIES: ALLERGIES ARE TO CODEINE POSSIBLY, BUT THERE IS NOTHING LISTED. IMMUNIZATIONS: Immunization is unavailable. Last tetanus is not known. He states he has flu shot regularly. He has had 2 COVID vaccines and has had pneumococcal vaccine as well. FAMILY HISTORY: Unremarkable. SOCIAL HISTORY: He lives with his daughter. He is a former smoker and quit many years ago. PHYSICAL EXAMINATION: GENERAL: On exam, the patient is alert and cooperative. His daughter states he is about where he normally is. RECOMMENDATIONS: So, I am going to go ahead and switch him to oral antibiotics. We do not need to repeat blood cultures for gram-negative rods because they are often times negative. If the gram-positive cocci is staph aureus, it we luis m repeat bc and other rx This is first treatment for bacteremic UTI and we will check a renal ultrasound. I will check on him again later if he remains an inpt. DT: 11:36:45 TT: 12:26:00 Ref: [id number] - TID: [id number] MTDD
== END 2025-05-19 17:06 | disposition home health service (06) | DRG 871 ==
LOC: SERX 06:40 → SERHOLD 06:43 → S2NX 17:18
PROVIDERS: Student in an Organized Health Care Education/Training Program; Admitting Provider Student in an Organized Health Care Education/Training Program; Emergency Provider Emergency Medicine; PCP Family Medicine; Visit Provider Student in an Organized Health Care Education/Training Program
DX: A41.59 Other Gram-negative sepsis (principal); G93.41 Metabolic encephalopathy; R65.21 Severe sepsis with septic shock; I21.A1 Myocardial infarction type 2; I69.351 Hemiplegia and hemiparesis following cerebral infarction affecting right dominant side; N39.0 Urinary tract infection, site not specified; N17.9 Acute kidney failure, unspecified; E87.20 Acidosis, unspecified; R47.81 Slurred speech; Z79.02 Long term (current) use of antithrombotics/antiplatelets; I10 Essential (primary) hypertension; E78.5 Hyperlipidemia, unspecified; Z87.440 Personal history of urinary (tract) infections; I69.320 Aphasia following cerebral infarction; E11.65 Type 2 diabetes mellitus with hyperglycemia; Z79.84 Long term (current) use of oral hypoglycemic drugs; E03.9 Hypothyroidism, unspecified; D64.9 Anemia, unspecified; F01.50 Vascular dementia, unspecified severity, without behavioral disturbance, psychotic disturbance, mood disturbance, and anxiety; N40.0 Benign prostatic hyperplasia without lower urinary tract symptoms; E80.6 Other disorders of bilirubin metabolism; R13.10 Dysphagia, unspecified; Z79.899 Other long term (current) drug therapy; Z87.891 Personal history of nicotine dependence; Z79.890 Hormone replacement therapy
CPT/HCPCS: 36415; 36600; 70450; 70553; 71045; 71250; 76770; 80053; 80061; 80202; 81001; 82248; 82803; 83036; 83605; 83735; 83880; 84100; 84145; 84439; 84443; 84484; 85025; 85610; 85652; 85730; 86140; 87040; 87077; 87081; 87086; 87186; 87400; 87811; 92526; 92610; 93005; 93306; 93880; 96361; 96365; 96366; 96375; 97162; 99284; J0131; J0696; J1644; J1815; J1885; J2405; J2470; J2543; J2919; J3373; J3375; J3475; J7030; J7050; J7120; J7999; A9270